=== PATIENT | male | born 1950 | race Caucasian/White ===

== ENCOUNTER 2020-09-12 17:46 | Inpatient (IN) | payer MEDICARE ==
[~2020-09-12] VITALS: Ht 172.7 cm; Wt 110.1 kg
[2020-09-12 17:51] VITALS: BP 141/49
[2020-09-12 18:13] LABS: ABSOLUTE BASOPHILS 0.1 thou/uL (0.0-0.2); ABSOLUTE LYMPHOCYTES 0.9 thou/uL (0.8-5.3); ABSOLUTE MONOCYTES 0.8 thou/uL (0.0-1.2); ABSOLUTE NEUTROPHILS 10.1 thou/uL (1.6-8.1); BASOPHILS 0.5 %; EOSINOPHILS 0.3 %; HEMATOCRIT 43.8 % (42.0-52.0); LYMPHOCYTES 7.6 %; MCH 30.5 pg (26.0-34.0); MCHC 34.1 g/dL (28.0-37.0); MCV 89.3 fL (80.0-100.0); MONOCYTES 6.9 %; MPV 11.3 fl. (7.2-11.1); NUCLEATED RBCS 0 /100WBC; PLATELET COUNT* 176 thou/uL (150-400); POLYS 84.7 %; RBC 4.91 mil/uL (4.50-6.00); RDW-CV 14.8 % (10.5-14.5); WBC 11.9 thou/uL (4.0-11.0)
[2020-09-12 18:24] LABS: APTT 24.2 Seconds (25.0-31.3); INR 1.1; PROTIME 11.7 Seconds (9.20-11.50)
[2020-09-12 18:42] LABS: ALBUMIN 2.9 g/dL (3.4-5.0); CALCIUM 8.8 mg/dL (8.5-10.1); CREATININE 0.9 mg/dL (0.6-1.3); MAGNESIUM 2.2 mg/dL (1.8-2.4); TOTAL BILIRUBIN 2.3 mg/dL (<0.1-1.0); TOTAL PROTEIN 6.8 g/dL (6.4-8.2)
[2020-09-12 18:45] LABS: POTASSIUM 2.9 mmol/L (3.5-5.1)
[2020-09-12 18:52] LABS: BE 8.1 mmol/L (-2 to +3); PCO2 44.8 mmHg (35.0-45.0); pH 7.481 (7.340-7.450)
[2020-09-12 18:59] LABS: PO2 247.1 mmHg (75.0-100.0)
[2020-09-12 21:48] LABS: URINE BILIRUBIN NEGATIVE (Negative); URINE BLOOD NEGATIVE (Negative); URINE CLARITY CLEAR; URINE COLOR YELLOW; URINE GLUCOSE-RANDOM NEGATIVE (Negative); URINE KETONES NEGATIVE (Negative); URINE LEUKOCYTES NEGATIVE (Negative); URINE NITRITE NEGATIVE (Negative); URINE PROTEIN NEGATIVE (Negative); URINE SPECIFIC GRAVITY <= 1.005 (1.005-1.030)
[2020-09-13] VITALS (181 sets, daily range): BP systolic 84–128; BP diastolic 42–77
[2020-09-13 05:23] LABS: HEMATOCRIT 42.4 % (42.0-52.0); HEMOGLOBIN 14.4 gm/dL (14.0-18.0); MCH 30.7 pg (26.0-34.0); MCHC 33.9 g/dL (28.0-37.0); MCV 90.4 fL (80.0-100.0); MPV 11.4 fl. (7.2-11.1); RBC 4.69 mil/uL (4.50-6.00); RDW-CV 14.5 % (10.5-14.5); WBC 7.3 thou/uL (4.0-11.0)
[2020-09-13 05:37] LABS: ALBUMIN 2.2 g/dL (3.4-5.0); CALCIUM 7.8 mg/dL (8.5-10.1); MAGNESIUM 1.8 mg/dL (1.8-2.4); PHOSPHORUS* 3.6 mg/dL (2.5-4.9); POTASSIUM 3.9 mmol/L (3.5-5.1); TOTAL PROTEIN 4.9 g/dL (6.4-8.2)
[2020-09-13 06:21] LABS: BE 4.3 mmol/L (-2 to +3); PCO2 48.7 mmHg (35.0-45.0); PO2 74.2 mmHg (75.0-100.0); pH 7.408 (7.340-7.450)
--- NOTE | 2020-09-13 06:23 | NUR ---
PATIENT ARRIVED ON UNIT AT 0425 WITH SURGERY. REPORT GIVEN AT BEDSIDE TO SENIOR MARKET RESEARCH ANALYST AND THIS RN. SENIOR MARKET RESEARCH ANALYST RECOVERED PATIENT UNTIL APPROX 0600. UPDATED REPRT GIVEN TO THIS RN. PATIENT INTUBATED AND SEDATED AT THIS TIME. INCISIONAL WOUND MIDLINE ABD WITH PATRICA UNDER SURGICAL DRESSING. WOUNDVAC IN PLACE AT SURGICAL SITE. SURGICAL COORDINATOR ASSESSMENT COMPLETED DOCUMENTED.
--- NOTE | 2020-09-13 07:37 | NUR ---
Nutrition: pt admit with strangulated hernia and bowel perforation. post-op ventral hernia repair and small bowel resection last pm. Pt now on vent in ICU. No wt hx. Albumin 2.2, BUN 21. Solumedrol, propfol and other meds reviewed. Assess at mild nutrition risk at this time, but recommend nutrition support if unable to start po soon.
--- NOTE | 2020-09-13 10:08 | EKG ---
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: ANIRUDH : 1950 Requested By: Cesar Aquino Order Number: [id number] MD: Rick Galloway Measurements Intervals [place] Rate: 119 P: 198 MD: 166 QRS: 33 QRSD: 157 T: -44 QT: 359 QTc: 506 Interpretive Statements Sinus or ectopic atrial tachycardia Multiform ventricular premature complexes Right bundle branch block No previous ECG available for comparison Electronically Signed On 09-13-2020 10:08:23 COFFEE MAKER by Rick Galloway [email or web address] <ELECTRONICALLY SIGNED> By: Rick Galloway MD, [facility] 09/13/20 1008 1744 1744 Rick Galloway MD, [facility] /EPI
--- NOTE | 2020-09-13 14:18 | NUR ---
ICU rounds: Pt had surgery around 4am. Wound vac in place. Per Med Assist, Pt does have insurance, facesheet to be updated. Satting in the 70s. Pineda. Low grade temp. Pt does not have any contact info on his medical chart.
--- NOTE | 2020-09-13 18:39 | NUR ---
Pt was showing signs of agitation with only propofol, md added fentanyl, and pt is resting comfortably. Pt sbp was in the high 80's and map was 59-60. Decreased propofol and fentanyl. Sbp is still soft but in the 90's, map is 66. No bm today, bowel sounds present. Decreased urine output this shift, fluid maintenance maintained.
[2020-09-14] VITALS (46 sets, daily range): BP systolic 92–125; BP diastolic 50–72
[2020-09-14 03:48] LABS: HEMATOCRIT 40.1 % (42.0-52.0); HEMOGLOBIN 13.2 gm/dL (14.0-18.0); MCHC 33.1 g/dL (28.0-37.0); MCV 90.8 fL (80.0-100.0); NUCLEATED RBCS 0 /100WBC; PLATELET COUNT* 134 thou/uL (150-400); RBC 4.41 mil/uL (4.50-6.00); WBC 12.1 thou/uL (4.0-11.0)
[2020-09-14 03:56] LABS: ALBUMIN 1.9 g/dL (3.4-5.0); CALCIUM 7.7 mg/dL (8.5-10.1); CREATININE 1.1 mg/dL (0.6-1.3); MAGNESIUM 2.2 mg/dL (1.8-2.4); PHOSPHORUS* 2.9 mg/dL (2.5-4.9)
[2020-09-14 05:35] LABS: BE 1.3 mmol/L (-2 to +3); PO2 63.7 mmHg (75.0-100.0)
[2020-09-14 05:43] LABS: PCO2 53.4 mmHg (35.0-45.0)
[2020-09-14 06:10] LABS: ABSOLUTE LYMPHOCYTES 0.1 thou/uL (0.8-5.3); ABSOLUTE MONOCYTES 0.4 thou/uL (0.0-1.2); ABSOLUTE NEUTROPHILS 11.6 thou/uL (1.6-8.1); PLATELET ESTIMATE DECREASED
[2020-09-14 06:11] LABS: ANISOCYTOSIS 1+; POIKILOCYTOSIS 1+
--- NOTE | 2020-09-14 14:41 | NUR ---
ICU rounds: Plan weaning trial, nurse waiting to speak to pulm. Following commands. CM obtained contact info for Pt's son, Marko [phone], CM left , awaiting call back.
[2020-09-14 15:37] LABS: BE 0.8 mmol/L (-2 to +3); pH 7.301 (7.340-7.450)
[2020-09-14 15:39] LABS: PCO2 59.2 mmHg (35.0-45.0)
[2020-09-14 15:40] LABS: PO2 59.4 mmHg (75.0-100.0)
[2020-09-15] VITALS (21 sets, daily range): BP systolic 109–149; BP diastolic 53–84
[2020-09-15 04:47] LABS: PO2 113.6 mmHg (75.0-100.0)
[2020-09-15 04:54] LABS: pH 7.262 (7.340-7.450)
[2020-09-15 04:55] LABS: PCO2 59.4 mmHg (35.0-45.0)
[2020-09-15 05:05] LABS: HEMATOCRIT 39.5 % (42.0-52.0); HEMOGLOBIN 12.8 gm/dL (14.0-18.0); MCH 29.9 pg (26.0-34.0); MCHC 32.5 g/dL (28.0-37.0); MCV 92.2 fL (80.0-100.0); MPV 11.2 fl. (7.2-11.1); RBC 4.29 mil/uL (4.50-6.00); RDW-CV 14.9 % (10.5-14.5); WBC 11.2 thou/uL (4.0-11.0)
[2020-09-15 05:38] LABS: CALCIUM 8.3 mg/dL (8.5-10.1); CREATININE 0.8 mg/dL (0.6-1.3); MAGNESIUM 2.4 mg/dL (1.8-2.4); POTASSIUM 4.2 mmol/L (3.5-5.1); TOTAL BILIRUBIN 0.9 mg/dL (<0.1-1.0); TOTAL PROTEIN 5.4 g/dL (6.4-8.2)
--- NOTE | 2020-09-15 10:11 | NUR ---
CARE TAKEN OVER AFTER PT RETURNED FROM CT. ABDOMINAL BINDER AND TOWEL REMOVED. TOWEL SATURATED. SEROSANG DRAINAGE FROM BETWEEN 3RD & 4TH PATRICA, 8TH & 9TH PATRICA, AND 11TH & 12TH PATRICA. ABDOMEN W/ DISTENTION AND TIGHT UPON ASSESSMENT-NEW FROM 09/14. UNABLE TO AUSCULTATE BS THIS AM. DISCOMFORT W/ PALPATION. DENIES PASSING FLATUS. NO BM. NG TO LIS. FULL BATH GIVEN. MIDLINE INCSION CLEANSED W/ SOAP AND WATER. ABD PADS AND PAPER CHUX PLACED UNDER ABD BINDER. REINFORCED EDUCATION R/T SPLINTING, DEEP BREATHING AND COUGHING, AND SUCTION. PT VERBALIZED UNDERSTANDING BUT WILL NEED ENCOURAGEMENT. RYTHYM ON MONITOR DIFFICULT TO INTERPRET. SR/ST W/ FREQUENT ECTOPY VS AFIB W/ FREQUENT ECTOPY. EKG COMPLETED AND GIVEN TO DR JONES. CARDS CONSULTED. PT DENIES CP OR OTHER DISCOMFORT. NO ST ELEVATION NOTED. VSS. Katia MCCALL RN
--- NOTE | 2020-09-15 11:46 | NUR ---
PT C/O BLADDER PRESSURE APPROXIMATELY 30MIN AFTER ADMINISTRATION OF FUROSEMIDE. NO URINE OUTPUT NOTED IN HERNANDEZ TUBING. HERNANDEZ REMOVED AND 16FR HERNANDEZ REPLACED. IMMEDIATE BLOOD TINGED URINE W/ SEDIMENT RETURNED. NOW CLEAR W/O SEDIMENT. APPROX 350CC IN UROMETER AFTER PLACEMENT. PT DENIES BLADDER PRESSURE/SPASMS AT THIS TIME. PT ALSO REPOSITIONED AND ORAL CARE COMPLETED. RESTING IN BED W/ EYES CLOSED AT THIS TIME. NORBERTO PEREA W/ CARDIOLOGY NOTIFIED OF CONSULT. Katia MCCALL RN
[2020-09-15 11:48] LABS: URINE BILIRUBIN NEGATIVE (Negative); URINE BLOOD 2+ (Negative); URINE CLARITY CLEAR; URINE COLOR YELLOW; URINE GLUCOSE-RANDOM NEGATIVE (Negative); URINE KETONES NEGATIVE (Negative); URINE LEUKOCYTES-REFLEX NEGATIVE (Negative); URINE NITRITE-REFLEX NEGATIVE (Negative); URINE PROTEIN NEGATIVE (Negative); URINE UROBILINOGEN 0.2 E.U./dl (0.2-1.0)
[2020-09-15 11:59] LABS: BACTERIA-REFLEX 1-9 Few /HPF (None Seen); CASTS None Seen /LPF (None Seen); CRYSTALS None Seen /LPF (None Seen); MUCUS None Seen strn/LPF (None Seen); SQUAMOUS 0-3 Few /LPF (0-3); URINE RBC >20 Many /HPF (0-2); URINE WBC-REFLEX 0-5 Rare /HPF (0-5)
--- NOTE | 2020-09-15 13:49 | NUR ---
ICU rounds: Extubated yesterday. On 9L NC. Bipap at NOC. Doing ok. Lasix gtt. CT abd today, Pt having drainage. ESTEE Pineda. Pain management. May need ARU vs SNF.
--- NOTE | 2020-09-15 14:40 | OP ---
[address] [address] OPERATIVE REPORT Name: АЛЕКСАНДР MAKI Room: [address] ADM IN M.R.#: [id number] Admission: 09/12/20 Attend Phys: Tay Mujica Discharge: Date of : 46 Report #: [id number] THIS REPORT FOR: cc: BORIS - No family physician/PCP FAM - No family physician/PCP ~ Mingo Vincent DO DICTATED BY: Shea Mario DO DATE OF SERVICE: 09/13/2020 PREOPERATIVE DIAGNOSIS: Incarcerated ventral hernia. POSTOPERATIVE DIAGNOSIS: Strangulated ventral hernia with perforated bowel. PRIMARY SURGEON: Mingo Vincent DO STENOTYPIST: Shea Mario DO, PGY3. PROCEDURE PERFORMED: Exploratory laparotomy, small bowel resection, small bowel anastomosis resection with reanastomosis, ventral hernia repair, and partial omentectomy. ANESTHESIA: General. ESTIMATED BLOOD LOSS: 40. SPECIMENS: Omentum, hernia sac, and small bowel. COMPLICATIONS: None. INDICATIONS FOR PROCEDURE: The patient is a pleasant 69-year-old gentleman that presented to the Emergency Department via EMS with complaints of worsening shortness of breath. He had a workup in the Emergency Department, which included a CT scan of his abdomen as he also complained of some periumbilical abdominal pain. CT scan of the abdomen and pelvis showed a ventral hernia containing a loop of small bowel with dilated loops of small bowel proximal to this area and decompressed loops distal to this indicative of an obstructive process. On exam, his abdomen was obese and quite tender to palpation at the site of the hernia. He also has some developing erythema and warmth overlying the hernia. Despite multiple tries, the hernia was unable to be reduced. It was recommended that he go to the operating room for exploration and repair of his hernia. The procedure, risks, benefits, possible complications to include bleeding, infection, injury to surrounding structures, need for additional surgery, the need for use of a mesh, mesh complications, need for bowel resection, need for ostomy, risks of anesthesia, [place] [address] OPERATIVE REPORT Name: АЛЕКСАНДР MAKI Room: [address] IN [facility]#: [id number] Admission: 09/12/20 Attend Phys: Tay Mujica Discharge: Date of : 46 Report #: [id number] discussed with the patient in great detail. He voiced complete understanding and wished to proceed with surgery. DESCRIPTION OF PROCEDURE: Informed consent was obtained. The patient was taken to the operating room and placed supine on the operating room table. General endotracheal anesthesia was induced without difficulty. SCDs were placed on bilateral lower extremities. Preoperative antibiotics were given. A Pineda catheter was placed. The abdomen was prepped and draped in the standard sterile fashion. A timeout was performed to ensure correct patient and procedure. An incision was planned out using a marking pen overlying the palpable hernia in the area of erythema. A #10 blade scalpel was used to make a celiotomy incision over the hernia. The incision was carried down through the subcutaneous tissues using electrocautery until we reached the hernia sac. The hernia sac was completely dissected free from surrounding tissues using mostly blunt dissection and a small amount of electrocautery until we reached the level of fascia. The hernia sac was grasped between 2 hemostats and entered using Metzenbaum scissors. Once the hernia sac was opened, there was a large amount of serous fluid that was expelled. A finger was inserted into the hernia sac and the hernia sac was completely opened up taking care not to injure the contents of the hernia sac. There was a large amount of devitalized omentum within the hernia sac as well as some small bowel. The small bowel was delivered through the hernia defect and we noted a quite large small bowel perforation that had occurred along the fascial edge secondry to pressure necrosis. There was some gross spillage. This was quickly suctioned away and the perforation was clamped with an Allis clamp so that we could run the remainder of the small bowel. The fascia was opened up superiorly and inferiorly for the full length of the incision. Once this was done, an exploration was performed. The small bowel was completely eviscerated and run from the ligament of Treitz to the terminal ileum. There did appear to be some chronic small bowel adhesions within the abdomen. These did not appear to be causing any sort of obstructive process. There was a clear transition point at the area of the small bowel perforation. This was in the distal jejunum and proximal ileum. Once the small bowel was run, we prepared to perform a small bowel resection. A small rent was made in the mesentery just proximal to the perforation. Once this was done, a 75 mm blue load on the DAYSI stapler was used to transect the bowel. Another small rent was made in the mesentery distal to our small bowel perforation. Another 75 mm blue load on the DAYSI stapler was used to transect the small bowel in this area. The LigaSure device was used to ligate the mesentery of the small bowel that was being removed. This was then passed off for permanent specimen. The antimesenteric corners of the small bowel were grasped with Allis clamps and brought together to perform an anastomosis. Heavy curved Mayos were used to cut off to make a small enterotomy on the antimesenteric corner of the small bowel. This was grasped with an Allis clamp. Another 75 mm blue load on the [address] [address] OPERATIVE REPORT Name: АЛЕКСАНДР MAKI Caitlin Room: [address] IN .R.#: [id number] Admission: 09/12/20 Attend Phys: Tay Mujica Discharge: Date of : 46 Report #: [id number] stapler was used to form our common enterotomy. Once this was done, the common enterotomy was inspected. It appeared to be hemostatic. The opening in the small bowel was then grasped and closed with 4 Allis clamps. This enterotomy was closed using a TA-60 stapler. Once this was done, the anastomosis was complete. A 2-0 silk suture was used to place a crotch stitch at the crotch of our anastomosis. The staple line was oversewn using 2-0 silk suture in a Lembert fashion. The common enterotomy was palpated. It felt widely open. The small bowel was then returned to the abdomen. The abdomen was irrigated with approximately 4 liters of sterile saline. At this point, we elected to run the small bowel one additional time prior to preparing to close. The small bowel was run from the ligament of Treitz to the terminal ileum. Upon inspection of our anastomosis, it appeared that there was a leak at the previously placed crotch stitch so the anastomosis was resected and a new anastomosis was performed in the same fashion as prior, although this time we did not place another crotch stitch. A small rent was made in the mesentery proximal to our anastomosis. The small bowel was transected using a 75 mm blue load on the DAYSI stapler. A small rent was made in the mesentery distal to our anastomosis and the small bowel was transected using 75 mm blue load on the DAYSI stapler. The mesentery of the small bowel that was being resected was ligated using the LigaSure device. Again antimesenteric corners of the small bowel were grasped with Allis clamps. A small enterotomy was made on both using a heavy curved Fagan scissors. This was grasped with an Allis clamp. A 75 mm blue load on the DAYSI stapler was used to form a common channel along the antimesenteric border of both segments of small bowel. This was inspected and appeared to be hemostatic. The remaining enterotomy in the small bowel was grasped and closed using Allis clamps. This was stapled closed using a TA-60 stapler. Once this was done, the anastomosis was complete. We did not place a crotch stitch at this time. The staple line was oversewn using 2-0 silk suture in a Lembert fashion. The mesenteric rent was closed using 2-0 Vicryl suture in a running fashion. The anastomosis was reinspected. It appeared to be hemostatic. Small bowel was returned to the abdomen. Abdomen was again irrigated using approximately 2 liters of warm sterile saline. The anesthesiologist placed an NG tube with feculent material return. This placement was confirmed by palpating the stomach during the surgery. During our exploration, we did palpate the liver. It did feel quite nodular consistent with a diagnosis of cirrhosis, which was mentioned on his preoperative CAT scan. There did not appear to be any other abnormalities on our exploration. We then prepared to close the abdomen. The fascia was closed using 2 number 1 PDS looped sutures. One was run from the bottom of the incision and one was run from the top. They met in the middle and then these were tied down. The subcutaneous tissues were reapproximated using 3-0 Vicryl suture in a simple interrupted and inverted fashion. The skin was reapproximated using kristofer. A 20 cm Prevena wound VAC was placed over our incision. Abdomen was cleansed and dried prior to [facility] [address] [place] [address] OPERATIVE REPORT Name: SHANTHIАЛЕКСАНДР Caitlin Room: 006-[facility] IN [facility].#: [id number] Admission: 09/12/20 Attend Phys: Tay Mujica Discharge: Date of : 46 Report #: [id number] placing the vacuum dressing. Once the VAC dressing was in place, our drapes were torn down. The patient tolerated the procedure very well. He remained intubated and was transferred to the ICU for ongoing care. <ELECTRONICALLY SIGNED> By: Mingo Vincent DO 09/15/20 1440 0450 0517Minog Vincent DO /nt
--- NOTE | 2020-09-15 15:31 | NUR ---
PT ASSISTED TO RECLINER CHAIR X2 NURSES. PT ABLE TO SIT ON EDGE OF BED AND STAND W/O DIFFICULTY. DENIED DIZZINESS/LIGHTHEADEDNESS/PAIN/DISCOMFORT. HR DID INCREASE TO 130'S BUT DID NOT SUSTAIN AND IS CURRENTLY IN 90'S-100'S. CONTINUES TO HAVE FREQUENT PVCS. O2 SAT REMAINED IN 90'S ON 14L HI [place]. DENIED SOA/DIFFICULTY BREATHING. CURRENTLY SITTING UP IN RECLINER. DENIES PAIN. ABD BINDER ADJUSTED. APPEARS TO HAVE DECREASED DRAINAGE. SWABS AT BEDSIDE. PT INDEPENDENT W/ ORAL CARE. HERNANDEZ TO D/D. DRAINING CLEAR/YELLOW ADEQUEATE URINE. Katia MCCALL RN
--- NOTE | 2020-09-15 16:41 | 2DMMODE ---
[place] [address] 2 D/M-MODE ECHOCARDIOGRAM Name: АЛЕКСАНДР MAKI Room: 006- ADM IN .R.#: [id number] Admission: 09/12/20 Attend Phys: Rashaad Boudreaux Discharge: Date of : 46 Date of Service: 09/15/20 1641 Report #: [id number] THIS REPORT FOR: cc: FAM - No family physician/PCP FAM - No family physician/PCP Trevor Hoyos MD [facility] ~ APPROVED REPORT Study performed: 09/15/2020 14:23:32 EXAM: Comprehensive 2D, Doppler, and color-flow Echocardiogram Patient Location: In-Patient Room #: 006 Status: routine BSA: 2.39 HR: 117 bpm BP: 116/59 mmHg Rhythm: NSR Other Information Study Quality: Good Indications Abnormal ECG Dyspnea 2D Dimensions IVSd: 12.87 (7-11mm) LVOT Diam: 24.51 (18-24mm) LVDd: 48.18 mm PWd: 9.68 (7-11mm) Ascending Ao: 40.07 (22-36mm) LVDs: 28.55 (25-40mm) Aortic Root: 39.63 mm Volumes Left Atrial Volume (Systole) LA ESV Index: 21.60 mL/m2 Aortic Valve AoV Peak Adrien.: 1.36 m/s AO Peak Gr.: 7.36 mmHg LVOT Max P.46 mmHg AO Mean Gr.: 4.32 mmHg LVOT Mean P.02 mmHg LVOT Max V: 1.27 m/s AO V2 VTI: 26.13 cm LVOT Mean V: 0.79 m/s [place] (VTI): 4.10 cm2 LVOT V1 VTI: 22.69 [place] [address] 2 D/M-MODE ECHOCARDIOGRAM Name: АЛЕКСАНДР MAKI Room: [address] IN ..#: [id number] Admission: 09/12/20 Attend Phys: Rashaad Boudreaux Discharge: Date of : 46 Date of Service: 09/15/20 1641 Report #: [id number] Mitral Valve E/A Ratio: 1.15 MV E Max Adrien.: 0.72 m/s Pulmonary Valve PV Peak Adrien.: 0.95 m/s PV Peak Gr.: 3.64 mmHg Left Ventricle The left ventricle is normal size. There is normal LV segmental wall motion. There is normal left ventricular wall thickness. Left ventricular systolic function is normal. LVEF is 60-65%. Transmitral Doppler flow pattern suggests impaired LV relaxation. Right Ventricle The right ventricle is normal size. The right ventricular systolic function is normal. Atria The left atrium size is normal. The right atrium size is normal. Aortic Valve The aortic valve is normal in structure. No aortic regurgitation is present. There is no aortic valvular stenosis. Mitral Valve The mitral valve is normal in structure. Trace mitral regurgitation. No evidence of mitral valve stenosis. Tricuspid Valve The tricuspid valve is normal in structure. There is no tricuspid valve regurgitation noted. Pulmonic Valve The pulmonary valve is normal in structure. There is no pulmonic valvular regurgitation. Great Vessels Aortic root is mildly dilated. (4.01cm) IVC is not visualized. Pericardium There is no pericardial effusion. <Conclusion> [place] [address] 2 D/M-MODE ECHOCARDIOGRAM Name: SHANTHIАЛЕКСАНДР J Room: [address] IN .R.#: [id number] Admission: 09/12/20 Attend Phys: Rashaad Boudreaux Discharge: Date of : 46 Date of Service: 09/15/201640 Report #: [id number] The left ventricle is normal size. There is normal left ventricular wall thickness. Left ventricular systolic function is normal. LVEF is 60-65%. Transmitral Doppler flow pattern suggests impaired LV relaxation. Trace mitral regurgitation. Aortic root is mildly dilated. (4.01cm) <ELECTRONICALLY SIGNED> By: Trevor Hoyos MD, [facility] 09/15/201640 40 Trevor Hoyos MD, FACC /INF
[2020-09-16] VITALS (23 sets, daily range): BP systolic 95–138; BP diastolic 33–77
[2020-09-16 04:39] LABS: HEMATOCRIT 39.3 % (42.0-52.0); HEMOGLOBIN 13.1 gm/dL (14.0-18.0); MCH 30.5 pg (26.0-34.0); MCHC 33.3 g/dL (28.0-37.0); MCV 91.6 fL (80.0-100.0); MPV 10.4 fl. (7.2-11.1); RBC 4.29 mil/uL (4.50-6.00); RDW-CV 14.9 % (10.5-14.5); WBC 7.4 thou/uL (4.0-11.0)
[2020-09-16 05:07] LABS: ALBUMIN 2.1 g/dL (3.4-5.0); ALKALINE PHOSPHATASE 73 U/L (46-116); ANION GAP < 0 mmol/L (7-16); BUN 34 mg/dL (7-18); CALCIUM 8.5 mg/dL (8.5-10.1); CHLORIDE 105 mmol/L (98-107); CO2 37 mmol/L (21-32); CREATININE 0.9 mg/dL (0.6-1.3); GLUCOSE 219 mg/dL (70-99); MAGNESIUM 2.2 mg/dL (1.8-2.4); POTASSIUM 4.4 mmol/L (3.5-5.1); SGOT 20 U/L (15-37); SGPT 21 U/L (30-65); SODIUM 141 mmol/L (136-145); TOTAL BILIRUBIN 0.7 mg/dL (<0.1-1.0); TOTAL PROTEIN 5.6 g/dL (6.4-8.2)
--- NOTE | 2020-09-16 06:26 | NUR ---
ASSUMED PATIENT CARE AT 1900. ASSESSMENTS COMPLETED CHARTED. CARDIAC MONITORING IN PLACE. MIDLINE INCISION DRESSING CHANGED TWICE. PATIENT DENIES PAIN. ABDOMINAL BINDER WITH INCISION DRESSING INTACT. FALL PRECAUTIONS IN PLACE FOR PATIENT SAFETY. BED LOCKED AND IN LOWEST POSITION. BED ALARM ON. HOURLY ROUNDING IN PLACE FOR PATIENT SAFETY. CLWR.
--- NOTE | 2020-09-16 10:26 | NUR ---
0798 ASSUMED CARE OF PATIENT. PLEASE SEE DOCUMENTED ASSESSMENT. PT DENIES PAIN. PT HAD BURST OF V TACH (4-5 BEATS) AND PRESENTS WITH FREQUENT VENTRICULAR ECTOPY.
--- NOTE | 2020-09-16 17:20 | EKG ---
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 And Service Agent: JINNY : 1950 Requested By: Gregoria Guerrero Order Number: [id number] Tomasz MD: Trevor Hoyos Measurements Intervals [place] Rate: 101 P: 87 MD: 220 QRS: 32 QRSD: 115 T: 3 QT: 356 QTc: 462 Interpretive Statements Sinus tachycardia Ventricular trigeminy Prolonged MD interval Incomplete right bundle branch block Low voltage, precordial leads Baseline wander in lead(s) V1 Compared to ECG 09/12/2020 17:44:54 First degree AV block now present Incomplete right bundle-branch block now present Low QRS voltage now present Right bundle-branch block no longer present Electronically Signed On 09-16-2020 17:20:39 NETWORK STRATEGIST by Trevor Hoyos [email or web address] <ELECTRONICALLY SIGNED> By: Trevor Hoyos MD, [facility] 09/16/20 1720 0859 Trevor Hoyos MD, [facility] /EPI
--- NOTE | 2020-09-16 17:21 | EKG ---
[place] [address] ELECTROCARDIOGRAM REPORT Name: АЛЕКСАНДР MAKI Room: [address] ADM IN M.R.#: [id number] Admission: 09/12/20 Attend Phys: Rashaad Boudreaux Discharge: Date of : 46 Date of Service: 09/15/20901 Report #: [id number] THIS REPORT FOR: //name// [facility] Test Date: 2020-09-15 Test Time: 09:02:07 Pat Name: АЛЕКСАНДР MAKI Department: Room: [address] Gender: M Miniature Train Driver: JINNY : 1950 Requested By: Gregoria Guerrero Order Number: [id number] Tomasz MD: Trevro Hoyos Measurements Intervals [place] Rate: 108 P: NM: QRS: 33 QRSD: 149 T: 3 QT: 344 QTc: 461 Interpretive Statements Sinus rhythm Premature ventricular complexes Low voltage right bundle branch block Baseline wander in lead(s) V1 Compared to ECG 09/15/2020 08:59:55 Right bundle-branch block now present Sinus tachycardia no longer present First degree AV block no longer present Incomplete right bundle-branch block no longer present Electronically Signed On 09-16-2020 17:21:34 REGULATORY COMPLIANCE DIRECTOR by Trevor Hoyos [email or web address] <ELECTRONICALLY SIGNED> By: Trevor Hoyos MD, [facility] 09/16/20 1721 1 1 Trevor Hoyos MD, [facility] /EPI
--- NOTE | 2020-09-16 17:44 | NUR ---
PATIENT IS PROGRESSING TOWARDS GOALS. TOLERATING NG CLAMPED. PASSING FLATUS. UP IN CHAIR SINCE 1000 AND HAS WORKED WITH PHYSICAL THERAPY. INCENTIVE SPIROMETER ENCOURAGED. STARTED ON DILTIAZEM THIS EVENING FOR FREQUENT ECTOPY. DENIES PAIN. ABDOMINAL DRESSING CHANGED THREE TIMES. CALLED SON PER PT REQUEST AND LEFT MESSAGE. ALLOWED LIQUIDS BUT JUDICIOUSLY.
[2020-09-17] VITALS (18 sets, daily range): BP systolic 92–134; BP diastolic 44–72
[2020-09-17 03:50] LABS: HEMATOCRIT 37.6 % (42.0-52.0); HEMOGLOBIN 12.7 gm/dL (14.0-18.0); MCH 30.4 pg (26.0-34.0); MCHC 33.7 g/dL (28.0-37.0); MCV 90.2 fL (80.0-100.0); MPV 10.2 fl. (7.2-11.1); RBC 4.17 mil/uL (4.50-6.00); RDW-CV 14.6 % (10.5-14.5); WBC 6.4 thou/uL (4.0-11.0)
[2020-09-17 04:09] LABS: ALKALINE PHOSPHATASE 71 U/L (46-116); ANION GAP < 0 mmol/L (7-16); CALCIUM 8.4 mg/dL (8.5-10.1); CHLORIDE 102 mmol/L (98-107); CO2 36 mmol/L (21-32); CREATININE 0.9 mg/dL (0.6-1.3); GLUCOSE 227 mg/dL (70-99); POTASSIUM 4.2 mmol/L (3.5-5.1); SGOT 22 U/L (15-37); SGPT 27 U/L (30-65); SODIUM 137 mmol/L (136-145); TOTAL BILIRUBIN 0.8 mg/dL (<0.1-1.0); TOTAL PROTEIN 5.2 g/dL (6.4-8.2)
[2020-09-17 04:20] LABS: BUN 33 mg/dL (7-18)
[2020-09-17 05:24] LABS: BE 8.4 mmol/L (-2 to +3); pH 7.446 (7.340-7.450)
[2020-09-17 05:32] LABS: PCO2 50.3 mmHg (35.0-45.0)
[2020-09-18] VITALS (12 sets, daily range): BP systolic 90–146; BP diastolic 46–102
[2020-09-18 04:08] LABS: HEMATOCRIT 39.5 % (42.0-52.0); MCH 29.9 pg (26.0-34.0); MCV 90.9 fL (80.0-100.0); MPV 9.9 fl. (7.2-11.1); RBC 4.35 mil/uL (4.50-6.00); RDW-CV 14.8 % (10.5-14.5); WBC 4.9 thou/uL (4.0-11.0)
[2020-09-18 04:11] LABS: ALBUMIN 2.1 g/dL (3.4-5.0); CALCIUM 8.5 mg/dL (8.5-10.1); CREATININE 0.8 mg/dL (0.6-1.3); MAGNESIUM 1.9 mg/dL (1.8-2.4); TOTAL BILIRUBIN 1.2 mg/dL (<0.1-1.0); TOTAL PROTEIN 5.4 g/dL (6.4-8.2)
--- NOTE | 2020-09-18 18:30 | NUR ---
PT CURRENTLY SITTING UP IN CHAIR EATING DINNER. DENIES PAIN/DISCOMFORT. CONT TO HAVE SOA W/ ACTIVITY. RT ATTEMPTING TO TITRATE 02 TOLERATED. IS ENCOURAGED T/O DAY Q2H AND PT DOING INDPENDENTLY INBETWEEN. REGULAR DIET ORDERED-PT TOLERATING WELL. DENIES NAUSEA. ABLE TO HAVE BM X2 ON COMMODE W/O DIFFICULTY. + BS. OSTOMY BAG PLACED BY DR PIERCE AT PLACE OF INCREASED DRAINING. POSSIBILITY OF WOUND VAC PLACEMENT VERBALIZED BY DR RODRIGUEZ BUT NO CURRENT ORDERS. ABLE TO STAND AT CHAIR AND MARCH IN PLACE. VSS. DENIES FURTHER NEEDS. Katia MCCALL RN
[2020-09-19] VITALS (22 sets, daily range): BP systolic 97–129; BP diastolic 54–67
--- NOTE | 2020-09-19 01:50 | NUR ---
PT REMAINS ON 11LPM HFNC. SATS =94%. PT DOES NOT SLEEP AT NIGHT, REMAINS IN CHAIR WITH TV ON, ALERT. BIPAP NOT USED.
[2020-09-19 03:29] LABS: HEMATOCRIT 40.3 % (42.0-52.0); HEMOGLOBIN 13.4 gm/dL (14.0-18.0); MCH 30.3 pg (26.0-34.0); MCHC 33.4 g/dL (28.0-37.0); MCV 90.7 fL (80.0-100.0); MPV 10.2 fl. (7.2-11.1); NUCLEATED RBCS 0 /100WBC; PLATELET COUNT* 118 thou/uL (150-400); RBC 4.44 mil/uL (4.50-6.00); RDW-CV 14.3 % (10.5-14.5); WBC 8.8 thou/uL (4.0-11.0)
[2020-09-19 03:44] LABS: CREATININE 0.9 mg/dL (0.6-1.3); PHOSPHORUS* 2.8 mg/dL (2.5-4.9); POTASSIUM 3.8 mmol/L (3.5-5.1)
[2020-09-19 06:57] LABS: ABSOLUTE LYMPHOCYTES 0.6 thou/uL (0.8-5.3); ABSOLUTE MONOCYTES 0.2 thou/uL (0.0-1.2); PLATELET ESTIMATE ADEQUATE
--- NOTE | 2020-09-19 07:07 | NUR ---
PT REQUESTED TO SPEAK TO HEAD NURSE IN CHARGE. PT WOULD NOT DISCLOSE REASON. NURSING HEELER MACHINE NOTIFIED.
--- NOTE | 2020-09-19 07:36 | NUR ---
JOB DEVELOPER [employer] ERICA REPORTED TO THIS PUBLIC SCHOOL TEACHER THAT PT WAS HAVING PAIN AT INCISION SITE. PRN MED GIVEN
--- NOTE | 2020-09-19 14:11 | NUR ---
ICU rounds: Pt in surgery, wound dehiscenced. Pt maybe placed back on vent post surgery, RT prepared to assist if needed.
--- NOTE | 2020-09-19 15:39 | NUR ---
5158 PATIENT RETURNED FROM SURGERY WITH OR STAFF AT BEDSIDE. PATIENT WAS PLACED BACK ON THE ICU MONITOR. PATIENT STABLE AND DENIES PAIN. PATIENT a&O X 4 PLEASANT AND COOPERATIVE. MIDLINE INCISION WITH PATENT WOUND VAC. NO FURTHER CONCERNS AT THIS TIME. WILL CONITNUE TO MONITOR AND CARE PER PLAN OF CARE.
[2020-09-20] VITALS (44 sets, daily range): BP systolic 82–127; BP diastolic 38–70
[2020-09-20 07:12] LABS: ABSOLUTE LYMPHOCYTES 0.5 thou/uL (0.8-5.3); ABSOLUTE MONOCYTES 0.7 thou/uL (0.0-1.2); ABSOLUTE NEUTROPHILS 12.3 thou/uL (1.6-8.1); BASOPHILS 0.1 %; HEMOGLOBIN 13.6 gm/dL (14.0-18.0); LYMPHOCYTES 3.6 %; MCH 30.1 pg (26.0-34.0); MCHC 33.2 g/dL (28.0-37.0); MCV 90.7 fL (80.0-100.0); MONOCYTES 5.1 %; MPV 9.6 fl. (7.2-11.1); NUCLEATED RBCS 0 /100WBC; PLATELET COUNT* 104 thou/uL (150-400); POLYS 91.2 %; RBC 4.52 mil/uL (4.50-6.00); RDW-CV 14.7 % (10.5-14.5); WBC 13.5 thou/uL (4.0-11.0)
[2020-09-20 07:20] LABS: CALCIUM 8.2 mg/dL (8.5-10.1); CREATININE 0.8 mg/dL (0.6-1.3); POTASSIUM 4.3 mmol/L (3.5-5.1)
--- NOTE | 2020-09-20 09:11 | OP ---
[address] [address] OPERATIVE REPORT Name: АЛЕКСАНДР MAKI Room: [address] ADM IN M.R.#: [id number] Admission: 09/12/20 Attend Phys: Tay Mujica Discharge: Date of : 46 Report #: [id number] THIS REPORT FOR: cc: FAM - No family physician/PCP FAM - No family physician/PCP ~ Xiao Pfeiffer DO DICTATED BY: Zackery Wong DO DATE OF SERVICE: 09/19/2020 PREOPERATIVE DIAGNOSIS: Fascial dehiscence. POSTOPERATIVE DIAGNOSIS: Fascial dehiscence. FINDINGS: Previous laparotomy incision with bulging kristofer with small bowel visible. SURGEON: Xiao Pfeiffer DO. CO-SURGEON: Zackery Wong DO, PGY5. BRIDGE WORKER APPRENTICE: Mikey Adam DO, PGY1. OPERATION PERFORMED: Reopening of recent laparotomy, repair of fascial dehiscence with component separation and preperitoneal mesh. ANESTHESIA: GETA. ESTIMATED BLOOD LOSS: 20 mL. SPECIMEN: None. COMPLICATIONS: None. CONDITION: Guarded. DISPOSITION: ICU. INDICATIONS: The patient is a 69-year-old male status post exploratory laparotomy for ventral hernia with perforated small bowel. He was taken to the operating room approximately a week ago for hernia repair, small bowel resection. His abdomen was closed with running looped PDS. Several days into his postop course in the ICU, he was noted after a spell of coughing to have an increase in fluid coming through his midline wound. He underwent CT scan at that time and was found to have an intact fascia. He had ongoing midline [facility] [address] [place] [address] OPERATIVE REPORT Name: АЛЕКСАНДР MAKI Room: [address] ADM IN .R.#: [id number] Admission: 09/12/20 Attend Phys: Tay Mujica Discharge: Date of : 46 Report #: [id number] drainage that was high in volume. Today when attempting to remove an ostomy appliance that was over a portion of his incision and catching some of the fluid, it was noted that between the kristofer at several points there was small bowel visible. His incision and bowel were quickly covered and he was informed of his status, informed of the risks and benefits of re-laparotomy and repair of his dehiscence with possible bowel resection and possible mesh. He consented to proceed with surgery. DESCRIPTION OF PROCEDURE: After informed consent was obtained, the patient was brought to the operating room and placed in supine position. SCDs were on and running. Preoperative Ancef was given. General anesthesia was administered with an ET tube. The patient was carefully prepped and draped in the usual sterile fashion. A surgical pause was held to confirm proper patient and procedure. His remaining kristofer were removed with a Fiorella. This immediately resulted in complete evisceration of the small bowel, which was folded under the skin. The remains of the fascial closure were opened. As the fascia had torn apart, the suture material had torn through the fascia. All previous PDS material was found and excised. There were several Vicryl stitches in the subcutaneous tissue, which were cut and then several Vicryl stitches in the peritoneum, which were also cut. The small bowel was delivered and inspected. It appeared intact. The colon was also delivered and appeared intact and healthy. The omentum was balled up in the right upper quadrant. This was unfolded and draped over the bowel. The abdomen was thoroughly irrigated and suctioned. Two 19-Georgian SHERLYN drains were placed in the right and left lower quadrant. Both drains were intra-abdominal to decrease the ascites load. On exploration of the abdomen, the patient's liver was palpated and extremely nodular and hard. The NG tube was palpated within the stomach in adequate position and decompressed. Attention was then returned towards the abdominal wall for reconstruction. The peritoneum was taken down from the fascia on both sides using combination of cautery and blunt dissection. The peritoneum was then closed using interrupted simple sutures with 2-0 Vicryl. There were several rents in the peritoneum, which were closed as well using 2-0 Vicryl. Two separate pieces of 7 x [address] mesh were then selected and sutured together lengthwise using three 2-0 PDS sutures and #1 nylon was then used to place 3 retention sutures that went transcutaneous through the subcutaneous tissue and through fascia and across to the other side, but did not go intraperitoneal. These were placed at the superior, middle and inferior aspect of the incision. They were tagged and placed aside. The mesh was then tacked down to the fascia at the lateral edges of the mesh using 2-0 PDS in a U-stitch fashion with suprafascial knots. This was performed at the superior, middle and inferior aspect on the lateral edges of the mesh. The fascia was then closed with interrupted 2-0 PDS sutures including some of the mesh in the closure. Once the fascia was completely closed, it was palpated and deemed adequate. The subcutaneous space was thoroughly irrigated and suctioned. The subcutaneous fat was closed in layered fashion using 3-0 Vicryl. [place] [address] OPERATIVE REPORT Name: АЛЕКСАНДР MAKI Room: [address] IN [facility]#: [id number] Admission: 09/12/20 Attend Phys: Tay Mujica Discharge: Date of : 46 Report #: [id number] closing kristofer. The retention sutures were then tied to themselves through a red rubber catheter over the kristofer. The drains were secured using a 3-0 nylon. The abdomen was then thoroughly irrigated and cleaned and a 20 cm Prevena was then placed over the skin closure and over the retention sutures. Additional drapes were placed around the drains to secure them. Mastisol was used to assist with Prevena securement. The counts were correct. The patient was then emerged from anesthesia and transferred back to the ICU in stable condition. <ELECTRONICALLY SIGNED> By: Xiao Pfeiffer DO 09/20/20 0911 1447 1527Chdamián Pfeiffer DO /haroon
--- NOTE | 2020-09-20 09:51 | PATH ---
[address] [address] PATHOLOGY RPT PROCEDURE Name: SHANTHIАЛЕКСАНДР Caitlin Room: [address] ADM IN M.R.#: [id number] Admission: 09/12/20 Date of : 46 Discharge: Report #: [id number] Path Case #: [id number] [facility] Accession Number: [id number] . 01 Material submitted: . PART A: small bowel - OMENTUM AND SMALL INTESTINE PART B: small bowel - SMALL BOWEL ANASTAMOSIS . 01 Clinical history: . INCARCERATED VENTRAL HERNIA, PERFORATION OF SMALL BOWEL ASSOCIATED WITH HERNIA, RESPIRATORY FAILURE, COPD, EXACERBATION, CELLULITIS . 02 Diagnosis: A. Omentum and small bowel: - Segment of benign small intestine with discrete transmural perforation in association with chronic and acute ischemic features including mural and serosal fibrosis, reactive endothelial proliferation and acute inflammation. - One benign mesenteric lymph node. - Benign omentum with acute serositis and focal serosal fibrosis. . B. Small bowel anastomosis: - Two benign anastomosed segments of small intestine with mild mucosal active inflammation and chronic and acute serositis and serosal fibrosis. . (BOY:mml; 09/15/2020) QLM 09/15/2020 1648 [facility] . 02 Electronically signed: . Baljeet Kirkland MD, Pathologist NPI- [id number] . 01 Gross description: . A. The specimen is received in a minimal amount of formalin, labeled "Ferdinand Valerio, omentum and small bowel". Received is an unoriented segment of small bowel measuring 33.7 cm in length and ranging in diameter from 3.3 to 4.2 cm. Both margins are stapled closed. The serosal surface is pink-alonso to dusky pink-lainez in appearance. There is a 1.9 cm transmural defect, consistent with perforation, located 5.2 cm from the closest margin. The attached mesenteric fat measures up to 3.8 cm in thickness. The specimen is opened along the antimesenteric line to reveal light alonso, slightly edematous mucosa with normal architectural folds. Sectioning through the attached mesenteric fat reveals a single possible lymph node measuring 0.4 cm in maximum dimensions. . Also received within the specimen container are two segments of yellow-alonso to dusky lainez-yellow omentum measuring 18.8 x 11.2 x 5.1 cm in aggregate dimensions. Sectioning reveals bright yellow [place] [address] PATHOLOGY RPT PROCEDURE Name: АЛЕКСАНДР VALERIO Room: [address] IN [facility].#: [id number] Admission: 09/12/20 Date of : 46 Discharge: Report #: [id number] Path Case #: [id number] surfaces with no grossly distinct nodules or lesions. The specimen is submitted representatively as follows: . A1 margin closest to perforation A2 opposite margin A3 entire area of perforation A4-A5 corporate representative cross-sections of mucosa A6 possible lymph node A7 corporate representative sections of omentum. . B. The specimen is received in formalin, labeled "Ferdinand Valerio, small bowel anastomosis". Received is a segment of small bowel measuring 8.3 cm in length by 3.6 cm in diameter, which is anastomosed to a second segment of small bowel measuring 4.5 cm in length by 2.8 cm in diameter. All margins are stapled closed. The serosal surfaces are dusky pink-lainez in appearance. The attached mesenteric fat measures up to 2.5 cm in thickness. There is a suture present within the bowel wall on the larger segment, which is located 2.1 cm from the closest margin. The specimen is along the antimesenteric line to reveal light alonso mucosa with normal architectural folds within the segment. There is a fresh-appearing anastomotic line identified between each segment measuring 7.2 cm in length. No distinct nodules or lesions are noted grossly. Sectioning through the attached mesenteric fat reveals no readily identifiable lymph nodes. The specimen is submitted representatively as follows: . B1-B2 both margins of larger segment B3-B4 both margins of smaller segment B5 cross section of mucosa where suture was located on larger segment B6 cross-sections of mucosa of larger segment B7 corporate representative sections of anastomotic line B8 corporate representative cross-sections of smaller segment. (CAA; 09/14/2020) QAC/QAC 09/15/2020 1643 Local . 02 Pathologist provided ICD-10: K55.9, K65.8, K52.9 . 02 CPT . 311612, 259221 Specimen Comment: A courtesy copy of this report has been sent to [phone], [phone] Specimen Comment: [id number] Specimen Comment: Report sent to / DR NOONAN Specimen Comment: A duplicate report has been generated due to demographic updates. Performed at: 01 [facility] [place] [address], [place], [place] [id number] MD Asher Boyer MD Phone: [phone] [facility] [address] [place] [address] PATHOLOGY RPT PROCEDURE Name: АЛЕКСАНДР VALERIO Room: [address] IN M.R.#: [id number] Admission: 09/12/20 Date of : 46 Discharge: Report #: [id number] Path Case #: [id number] Performed at: 02 [facility] [address] [place], [place] [id number] MD Baljeet Kirkland MD Phone: [phone]
--- NOTE | 2020-09-20 10:48 | NUR ---
9571 ASSUMED CARE OF PATIENT. PLEASE SEE DOCUMENTED ASSESSMENT. PT IS NPO AT THIS TIME
--- NOTE | 2020-09-20 13:52 | NUR ---
ICU rounds: Dehisced yesterday, retention sutures in place. Wound vac. NG clamped, start liquids. Bowels quiet. On 13L o2. Vitals stable.
--- NOTE | 2020-09-20 18:42 | NUR ---
PATIENT PROGRESSING TOWARDS GOALS. REMAINS ON 13LPM HIGH FLOW CANNULA. POOR EFFORT WITH IS. NG CLAMPED AND TOLERATED. INCISION BENIGN. DRAIN OUTPUT CHARTED. WORKED WITH PHYSICAL THERAPY. STARTED CLEAR LIQUID DIET. RADIOLOGY EXAMS NOTED. HAD VISITOR FROM WHERE HE LIVES.
[2020-09-21] VITALS (10 sets, daily range): BP systolic 58–157; BP diastolic 26–74
[2020-09-21 03:46] LABS: ABSOLUTE LYMPHOCYTES 0.5 thou/uL (0.8-5.3); ABSOLUTE MONOCYTES 0.6 thou/uL (0.0-1.2); ABSOLUTE NEUTROPHILS 13.5 thou/uL (1.6-8.1); BASOPHILS 0.1 %; CALCIUM 8.5 mg/dL (8.5-10.1); CREATININE 0.8 mg/dL (0.6-1.3); HEMATOCRIT 40.9 % (42.0-52.0); HEMOGLOBIN 13.4 gm/dL (14.0-18.0); LYMPHOCYTES 3.7 %; MCH 29.6 pg (26.0-34.0); MCHC 32.9 g/dL (28.0-37.0); MCV 90.1 fL (80.0-100.0); MONOCYTES 4.1 %; MPV 10.4 fl. (7.2-11.1); NUCLEATED RBCS 0 /100WBC; PLATELET COUNT* 105 thou/uL (150-400); POLYS 92.1 %; POTASSIUM 4.4 mmol/L (3.5-5.1); RBC 4.54 mil/uL (4.50-6.00); RDW-CV 14.3 % (10.5-14.5); WBC 14.6 thou/uL (4.0-11.0)
--- NOTE | 2020-09-21 14:26 | NUR ---
orders to transfer patient out of icu. report called to [place]. patient transferred via bed at 219 personal belongings sent with patient.
--- NOTE | 2020-09-21 14:35 | NUR ---
patient blood pressure reading 58/26 not accurate. Vitals stable, patient in stable condition at the time of transfer
[2020-09-22] VITALS (23 sets, daily range): BP systolic 84–148; BP diastolic 32–78
[2020-09-22 04:20] LABS: ABSOLUTE MONOCYTES 0.6 thou/uL (0.0-1.2); ABSOLUTE NEUTROPHILS 12.9 thou/uL (1.6-8.1); BASOPHILS 0.1 %; EOSINOPHILS 0.1 %; HEMATOCRIT 40.7 % (42.0-52.0); HEMOGLOBIN 13.4 gm/dL (14.0-18.0); MCH 29.9 pg (26.0-34.0); MCHC 32.9 g/dL (28.0-37.0); MCV 90.9 fL (80.0-100.0); MONOCYTES 3.8 %; MPV 10.9 fl. (7.2-11.1); NUCLEATED RBCS 0 /100WBC; PLATELET COUNT* 96 thou/uL (150-400); RBC 4.48 mil/uL (4.50-6.00); RDW-CV 14.9 % (10.5-14.5); WBC 14.4 thou/uL (4.0-11.0)
[2020-09-22 04:43] LABS: ALBUMIN 1.8 g/dL (3.4-5.0); CALCIUM 8.1 mg/dL (8.5-10.1); CREATININE 0.7 mg/dL (0.6-1.3); POTASSIUM 3.8 mmol/L (3.5-5.1); TOTAL BILIRUBIN 1.9 mg/dL (<0.1-1.0); TOTAL PROTEIN 4.6 g/dL (6.4-8.2)
[2020-09-22 05:08] LABS: MAGNESIUM 1.8 mg/dL (1.8-2.4); PHOSPHORUS* 2.6 mg/dL (2.5-4.9)
[2020-09-22 05:37] LABS: INR 1.1
[2020-09-22 05:54] LABS: % SATURATION 71 % (20-39); IRON 105 ug/dL (50-175)
--- NOTE | 2020-09-22 07:48 | NUR ---
Alert and oriented x 4. Momitor rhythym SR with PVC's. He is on high flow n/c at 15L. He has had alot of drainage from SHERLYN's x 2. Woundvac is in plae to midline incision at 125mm sontinuously. He has had fentanyl and oxycodone for pain. This am he has had afib on the monitor. Dr Boudreaux notified and orders recieved. Dr Vaz also her this am and aware.
--- NOTE | 2020-09-22 11:50 | NUR ---
CM SPOKE TO THE PT TO DISCUSS CM ASSESSMENT. PT ALERT AND ORIENTED. PT INFORMS THAT HE IS NORMALLY INDEPENDENT WITH ADL'S. PT RESIDES AT HOME WITH A FRIEND AND HER CHILDREN AND HE LIVES IN THE BASEMENT PORTION OF THE HOME. PT USED 0 DME PRIOR TO ADMIT. PT HAS 0 HX OF HH. PT HAS PAST HX OF SNF, BUT COULD NOT RECALL WHERE. CM SPOKE TO THE PT TO DISCUSS D/C PLANNING AND POSSIBLE REHAB VS SNF PLACEMENT AT D/C. PT IN AGREEMENT AND ACKNOWLEDGES THAT HE WILL NEED SOME KIND OF THERAPY AT D/C. CM WILL REMAIN AVAILABLE TO ASSIST AND FOLLOW NEEDED.
--- NOTE | 2020-09-22 12:47 | EKG ---
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: : 1950 Requested By: Rashaad Boudreaux Order Number: [id number] Tomasz MD: Trevor Hoyos Measurements Intervals [place] Rate: 87 P: 39 ME: 200 QRS: 17 QRSD: 138 T: -15 QT: 374 QTc: 450 Interpretive Statements Sinus rhythm Right bundle branch block Compared to ECG 09/15/2020 09:02:07 Ventricular premature complex(es) no longer present Electronically Signed On 09-22-2020 12:46:49 CHILD'S NURSE by Trevor Hoyos [email or web address] <ELECTRONICALLY SIGNED> By: Trevor Hoyos MD, FACC 09/22/20 1246 0837 0837 Trevor Hoyos MD, [facility] /EPI
[2020-09-22 13:08] LABS: HEPATITIS B SURFACE AG Negative (Negative)
[2020-09-22 13:30] LABS: BE 8.6 mmol/L (-2 to +3)
[2020-09-22 13:32] LABS: PO2 39.3 mmHg (75.0-100.0)
[2020-09-22 14:53] LABS: BE 7.9 mmol/L (-2 to +3); PO2 67.3 mmHg (75.0-100.0); pH 7.433 (7.340-7.450)
[2020-09-22 14:58] LABS: PCO2 51.6 mmHg (35.0-45.0)
[2020-09-22 17:57] LABS: HEMATOCRIT 35.7 % (42.0-52.0); HEMOGLOBIN 12.1 gm/dL (14.0-18.0); MCH 31.1 pg (26.0-34.0); MCV 91.5 fL (80.0-100.0); MPV 10.8 fl. (7.2-11.1); NUCLEATED RBCS 0 /100WBC; PLATELET COUNT* 78 thou/uL (150-400); RDW-CV 14.4 % (10.5-14.5); WBC 17.6 thou/uL (4.0-11.0)
[2020-09-22 17:57] LABS: BE 9.8 mmol/L (-2 to +3); PO2 73.7 mmHg (75.0-100.0); pH 7.438 (7.340-7.450)
[2020-09-22 18:01] LABS: ABSOLUTE NEUTROPHILS 16.6 thou/uL (1.6-8.1); POLYS 94.3 %
[2020-09-22 18:02] LABS: ABSOLUTE LYMPHOCYTES 0.4 thou/uL (0.8-5.3); ABSOLUTE MONOCYTES 0.6 thou/uL (0.0-1.2); BASOPHILS 0.1 %; EOSINOPHILS 0.1 %; LYMPHOCYTES 2.1 %; MONOCYTES 3.4 %
[2020-09-22 18:05] LABS: PCO2 54.2 mmHg (35.0-45.0)
[2020-09-22 18:14] LABS: CREATININE 0.8 mg/dL (0.6-1.3); POTASSIUM 4.1 mmol/L (3.5-5.1)
[2020-09-22 18:18] LABS: ALBUMIN 1.5 g/dL (3.4-5.0); MAGNESIUM 1.7 mg/dL (1.8-2.4); PHOSPHORUS* 3.7 mg/dL (2.5-4.9); TOTAL BILIRUBIN 1.8 mg/dL (<0.1-1.0)
--- NOTE | 2020-09-22 19:51 | NUR ---
PATIENT INTUBATED IN PACU AND ADMITTED INTO ROOM 6 AT 1645. ARRIVED INTUBATED AND SEDATED. PLACED ON MONITOR, SR WITH PVCS NOTED. MIDLINE INCISION COVED WITH WOUND VAC IN PLACE.
[2020-09-23] VITALS (78 sets, daily range): BP systolic 67–137; BP diastolic 42–99
--- NOTE | 2020-09-23 01:03 | NUR ---
recieved report and assumed care of pt.
[2020-09-23 03:50] LABS: ABSOLUTE LYMPHOCYTES 0.3 thou/uL (0.8-5.3); ABSOLUTE MONOCYTES 0.2 thou/uL (0.0-1.2); ABSOLUTE NEUTROPHILS 10.7 thou/uL (1.6-8.1); HEMATOCRIT 36.5 % (42.0-52.0); HEMOGLOBIN 12.2 gm/dL (14.0-18.0); LYMPHOCYTES 2.5 %; MCH 30.2 pg (26.0-34.0); MCHC 33.4 g/dL (28.0-37.0); MCV 90.5 fL (80.0-100.0); MONOCYTES 1.4 %; MPV 11.1 fl. (7.2-11.1); NUCLEATED RBCS 0 /100WBC; PLATELET COUNT* 71 thou/uL (150-400); POLYS 96.1 %; RBC 4.03 mil/uL (4.50-6.00); RDW-CV 14.6 % (10.5-14.5); WBC 11.2 thou/uL (4.0-11.0)
[2020-09-23 04:24] LABS: ALBUMIN 2.2 g/dL (3.4-5.0); CREATININE 0.9 mg/dL (0.6-1.3); MAGNESIUM 2.2 mg/dL (1.8-2.4); POTASSIUM 4.3 mmol/L (3.5-5.1); TOTAL BILIRUBIN 2.3 mg/dL (<0.1-1.0); TOTAL PROTEIN 4.8 g/dL (6.4-8.2)
[2020-09-23 06:01] LABS: LIPASE 30 U/L (73-393); TRIGLYCERIDE 69 mg/dL (<150)
--- NOTE | 2020-09-23 07:23 | NUR ---
RIGHT BASILIC VESSEL ACCESSED FOR 5 SAMMARINESE TRIPLE LUMEN PICC. LINE PRE-TRIMMED TO 41CM AND ADVANCED TO THE ZERO FREDY WITH NO RESISTANCE MET. UPPER ARM CIRCUMFERENCE ABOVE INSERTION SITE=14". SHERLOCK MAGNET ANED 3CG CONFIRMATION OF TIP TERMINATION AT THE CAVOATRIAL JUNCTION APPRECIATED. GUIDEWIRE REMOVED, LINE FLUSHED AND INSERTION SITE DRESSED. REPORT GIVEN TO GHAZAL MCCULLOUGH.
[2020-09-23 09:09] LABS: BE 6.2 mmol/L (-2 to +3); PCO2 40.1 mmHg (35.0-45.0); PO2 69.4 mmHg (75.0-100.0); pH 7.492 (7.340-7.450)
--- NOTE | 2020-09-23 14:08 | NUR ---
ICU rounds: Transferred down from tele yesterday. On vent. FIO2 70%, peer 8. Propofol and fentanyl.
[2020-09-23 18:12] LABS: CALCIUM 8.7 mg/dL (8.5-10.1); CREATININE 0.9 mg/dL (0.6-1.3); MAGNESIUM 2.2 mg/dL (1.8-2.4); POTASSIUM 3.8 mmol/L (3.5-5.1)
--- NOTE | 2020-09-23 18:25 | NUR ---
NO ACUTE EVENTS, VSS. ATTEMPTING TO TITRATE PROPOFOL OFF IN FAVOR OF PRECEDEX. PT REQUIRED VERSED PUSH TO TRANSITION. PROPOFOL NOW AT 10/PRECEDEX AT 0.06. PT RASS: 0. NODS APPROPRIATELY AND FOLLOWS COMMANDS. PT C/O ITCHINESS AROUND SURGICAL SITE. BENADRYL GIVEN PER NOV.
[2020-09-24] VITALS (37 sets, daily range): BP systolic 91–215; BP diastolic 48–210
[2020-09-24 05:29] LABS: HEMATOCRIT 34.3 % (42.0-52.0); HEMOGLOBIN 11.6 gm/dL (14.0-18.0); MCH 30.6 pg (26.0-34.0); MCHC 33.8 g/dL (28.0-37.0); MCV 90.5 fL (80.0-100.0); MPV 11.3 fl. (7.2-11.1); RBC 3.79 mil/uL (4.50-6.00); RDW-CV 14.7 % (10.5-14.5); WBC 9.6 thou/uL (4.0-11.0)
[2020-09-24 06:02] LABS: CALCIUM 8.6 mg/dL (8.5-10.1); CREATININE 0.8 mg/dL (0.6-1.3); MAGNESIUM 2.3 mg/dL (1.8-2.4); POTASSIUM 4.1 mmol/L (3.5-5.1)
--- NOTE | 2020-09-24 06:50 | NUR ---
ASSUMED PATIENT CARE AT 1900. ASSESSMENTS COMPLETED CHARTED. CARDIAC MONITORING IN PLACE. PATIENT ARTERIAL LINE REMAINS IN PLACE AND WORKING BUT IS POSITIONAL. MIDLINE DRESSING INTACT WITH 55ML OF DRAINAGE. PROPOFOL TITRATED OFF AND PRECEDEX TITRATED UP TO MAINTAIN VENT EFFICACY. PATIENT TURNED Q2 FOR SKIN INTEGRITY AND COMFORT. NO BOWEL MOVEMENT DURING SHIFT. BED LOCKED AND IN LOWEST POSITION.
--- NOTE | 2020-09-24 17:27 | NUR ---
NO ACUTE EVENTS. VSS, SEDATION TITRATED FOR RASS -2 PER MD. PRECEDEX AT 1.4 AT MD REQUEST FOR VENT COMPLIANCE. PRN VERSED PUSH PRN. Q2H AND PRN ORAL CARE AND REPOSITION. RESTRAINTS REMAIN FOR PT SAFETY WITH LINES AND TUBES. ALL TUBE FEED PUMPS IN USE, WILL REEVALUATE WHEN MACHINES BECOME AVAILABLE.
[2020-09-25] VITALS (65 sets, daily range): BP systolic 84–161; BP diastolic 43–95
[2020-09-25 05:59] LABS: ABSOLUTE LYMPHOCYTES 0.2 thou/uL (0.8-5.3); ABSOLUTE MONOCYTES 0.5 thou/uL (0.0-1.2); ABSOLUTE NEUTROPHILS 9.5 thou/uL (1.6-8.1); BASOPHILS 0.2 %; HEMATOCRIT 35.6 % (42.0-52.0); LYMPHOCYTES 1.7 %; MCH 30.3 pg (26.0-34.0); MCHC 33.6 g/dL (28.0-37.0); MONOCYTES 4.9 %; MPV 11.8 fl. (7.2-11.1); NUCLEATED RBCS 0 /100WBC; PLATELET COUNT* 67 thou/uL (150-400); POLYS 93.2 %; RBC 3.96 mil/uL (4.50-6.00); RDW-CV 14.5 % (10.5-14.5); WBC 10.2 thou/uL (4.0-11.0)
[2020-09-25 06:17] LABS: ALBUMIN 2.8 g/dL (3.4-5.0); CALCIUM 8.1 mg/dL (8.5-10.1); CREATININE 0.7 mg/dL (0.6-1.3); POTASSIUM 3.4 mmol/L (3.5-5.1); TOTAL PROTEIN 5.2 g/dL (6.4-8.2)
--- NOTE | 2020-09-25 06:51 | NUR ---
ASSUMED PATIENT CARE AT 1900. ASSESSMENTS COMPLETED CHARTED. CARDIAC MONITORING IN PLACE. SEROSANGUINEOUS DRAINAGE FROM LEFT AND RIGHT SHERLYN DRAINS, SEE CHARTING FOR OUTPUT AMOUNTS. VERSED DRIP STARTED AND TITRATED PER DR. STOUT'S ORDERS FOR PATIENT AGITATION. SEDATION TITRATED PER ICU PROTOCOL FOR VENT EFFICACY AND PATIENT COMFORT. Q2 TURNS FOR SKIN INTEGRITY AND PATIENT COMFORT. NO BOWEL MOVEMENTS THIS SHIFT. BED LOCKED AND IN LOWEST POSITION.
[2020-09-25 08:41] LABS: BE 9.3 mmol/L (-2 to +3); PCO2 47.1 mmHg (35.0-45.0); PO2 69.5 mmHg (75.0-100.0); pH 7.479 (7.340-7.450)
[2020-09-25 17:24] LABS: CALCIUM 9.3 mg/dL (8.5-10.1); CREATININE 0.9 mg/dL (0.6-1.3); POTASSIUM 3.7 mmol/L (3.5-5.1)
[2020-09-26] VITALS (96 sets, daily range): BP systolic 80–139; BP diastolic 44–75
[2020-09-26 04:06] LABS: HEMATOCRIT 33.7 % (42.0-52.0); HEMOGLOBIN 11.4 gm/dL (14.0-18.0); MCH 30.6 pg (26.0-34.0); MCHC 33.7 g/dL (28.0-37.0); MCV 90.7 fL (80.0-100.0); NUCLEATED RBCS 0 /100WBC; PLATELET COUNT* 63 thou/uL (150-400); RBC 3.72 mil/uL (4.50-6.00); RDW-CV 14.4 % (10.5-14.5); WBC 11.9 thou/uL (4.0-11.0)
[2020-09-26 04:27] LABS: CALCIUM 8.7 mg/dL (8.5-10.1); CREATININE 1.1 mg/dL (0.6-1.3); MAGNESIUM 2.1 mg/dL (1.8-2.4); TOTAL BILIRUBIN 1.6 mg/dL (<0.1-1.0); TOTAL PROTEIN 5.3 g/dL (6.4-8.2)
[2020-09-26 07:07] LABS: ABSOLUTE LYMPHOCYTES 0.1 thou/uL (0.8-5.3); ABSOLUTE MONOCYTES 0.2 thou/uL (0.0-1.2); ABSOLUTE NEUTROPHILS 11.5 thou/uL (1.6-8.1); PLATELET ESTIMATE DECREASED
--- NOTE | 2020-09-26 14:33 | NUR ---
ICU rounds: On vent, sedated. Tube feeds. No BM. Surgery following.
--- NOTE | 2020-09-26 21:49 | NUR ---
NOTIFIED DR VIDAL PT'D TUBE FEEDING RESIDUAL > 500. TUBE FEEDING STOPPED, KUB ORDERED IN AM TO RULE OUT OBSTRUCTION OR ILEUS.
[2020-09-27] VITALS (53 sets, daily range): BP systolic 82–145; BP diastolic 49–79
[2020-09-27 03:55] LABS: ABSOLUTE LYMPHOCYTES 0.1 thou/uL (0.8-5.3); ABSOLUTE MONOCYTES 0.2 thou/uL (0.0-1.2); ABSOLUTE NEUTROPHILS 9.1 thou/uL (1.6-8.1); BASOPHILS 0.3 %; HEMOGLOBIN 12.1 gm/dL (14.0-18.0); LYMPHOCYTES 1.4 %; MCH 30.1 pg (26.0-34.0); MCHC 33.5 g/dL (28.0-37.0); MCV 89.9 fL (80.0-100.0); MONOCYTES 1.9 %; MPV 11.6 fl. (7.2-11.1); NUCLEATED RBCS 0 /100WBC; PLATELET COUNT* 53 thou/uL (150-400); POLYS 96.4 %; RBC 4.01 mil/uL (4.50-6.00); RDW-CV 14.4 % (10.5-14.5); WBC 9.4 thou/uL (4.0-11.0)
[2020-09-27 04:10] LABS: ALBUMIN 2.9 g/dL (3.4-5.0); CALCIUM 8.5 mg/dL (8.5-10.1); CREATININE 0.8 mg/dL (0.6-1.3); MAGNESIUM 2.2 mg/dL (1.8-2.4); POTASSIUM 4.7 mmol/L (3.5-5.1); TOTAL BILIRUBIN 1.8 mg/dL (<0.1-1.0); TOTAL PROTEIN 5.2 g/dL (6.4-8.2)
--- NOTE | 2020-09-27 08:02 | CON ---
[address] [address] CONSULTATION Name: LUIS FELIPE MAKI Room: [address] IN M.R.#: [id number] Admission: 09/12/20 Attend Phys: Tay Mujica Discharge: Date of : 46 Report #: [id number] THIS REPORT FOR: cc: FAM - No family physician/PCP FAM - No family physician/PCP ~ Luis Felipe Lynn DO DATE OF SERVICE: 09/21/2020 GASTROENTEROLOGY CONSULTATION REFERRING PHYSICIAN: Dr. Rashaad Boudreaux. PRIMARY CARE PROVIDER: The patient has no primary care provider. REASON FOR CONSULTATION: Ascites. IMPRESSION: 1. Ascites secondary to portal hypertension. 2. Cirrhosis due to previous alcohol abuse. 3. Status post repair of incarcerated umbilical hernia with need for emergency surgery due to small bowel perforation followed by repeat surgery for fascial dehiscence. 4. Respiratory failure requiring high-flow oxygen. RECOMMENDATIONS: 1. We will increase the patient's diuretics. 2. Aldactone 100 mg and Lasix 40 mg twice daily for now and monitor his vitals, monitor his renal output as well as renal function. 3. We would add albumin 25 grams IV every 6 hours to help improve oncotic pressure and to prevent further third spacing. 4. We will discontinue the SHERLYN drain which was draining ascitic fluid and place an ostomy bag over the site as it may continue to leak even after removal. 5. We will place the patient on 2-g sodium restricted diet. 6. We will check additional labs to see if there is anything else other than previous alcohol abuse as a cause for his decompensated liver disease. I have discussed these plans with the patient as well and he is agreeable to the same. HISTORY OF PRESENT ILLNESS: The patient is a 69-year-old white male who was admitted to hospital on 09/12 with findings of a small bowel obstruction secondary to incarcerated umbilical hernia. He had undergo emergency surgery for the same followed by second surgery because of fascial dehiscence, he is now here in followup in the ICU. Postoperatively, he developed ascites, which has been difficult to control and he has a SHERLYN drain draining ascitic fluid, which is full clear. He has a prior history of major alcohol abuse, [place] [address] CONSULTATION Name: SHANTHILUIS FELIPE Caitlin Room: [address] IN [facility]#: [id number] Admission: 09/12/20 Attend Phys: Tay Mujica Discharge: Date of : 46 Report #: [id number] long time ago. He also states he has a history of "partying" and recreational drug use, but it has been a number of years. He did not know that he had cirrhosis or liver disease. He does not have a primary care provider outside the hospital. He has had no real followup. ALLERGIES: Upon admission his allergies were none. MEDICATIONS AT HOME: None. PAST MEDICAL HISTORY: Significant for COPD and diabetes. He denies taking any medications on a regular basis. SOCIAL HISTORY: The patient was previously major alcoholic, quit about 4-5 years ago because he wanted to stop. He has a history of remote drug use. FAMILY HISTORY: Negative. PHYSICAL EXAMINATION: GENERAL: Revealed an ill-appearing 69-year-old gentleman who is awake and alert. CARDIOPULMONARY: Revealed a regular rate and rhythm with diminished breath sounds throughout. He had rhonchi throughout. ABDOMEN: Soft, mildly distended. He has SHERLYN drain draining ascitic fluid. His liver is firm and nodular. LABORATORY DATA: His laboratory test from the revealed a white count of 14.6, hemoglobin 13.4, platelet count 105,000, MCV is 90.1 and RDW 14.3. His sodium is 137, potassium 4.4, chloride 102, bicarbonate is 35, his BUN is 24 and creatinine 0.8. GFR of 95. His bilirubin on the was 1.2, alkaline phosphatase 70, AST 29, ALT 29 and albumin was 2.1. On admission, the patient's bilirubin was 2.3, alkaline phosphatase was 128, AST 29, ALT 22 and albumin of 2.9. CT scan of the abdomen and pelvis was performed on the revealed no evidence for pulmonary embolism. Heart is normal. CT scan revealed diffusely nodular liver compatible with cirrhosis with no hepatic mass or ductal dilation. There are dependent gallstones within the gallbladder. Small amount of fluid along the inferior portion of the gallbladder and the inferior margin of the liver. The spleen, pancreas, adrenal glands and right kidney are unremarkable. Distal esophagus and stomach are unremarkable. There is a ventral abdominal hernia containing fat and small bowel plus dilated loops of ____ proximal to the bowel within the hernia sac with high-grade obstruction at the site of the hernia. DISCUSSION: At the present time, the patient has postoperative ascites [address] [address] CONSULTATION Name: LUIS FELIPE MAKI Room: [facility] ADM IN M.R.#: [id number] Admission: 09/12/20 Attend Phys: Tay Mujica Discharge: Date of : 46 Report #: [id number] secondary to decompensated liver disease. We will proceed with this patient on diuretic regimen, 2-g sodium restricted diet and follow him while in the hospital. I have discussed the plans with the patient as well and he is agreeable to the same. <ELECTRONICALLY SIGNED> By: Luis Felipe Lynn DO 09/27/20 0802 03 jacinta Lynn DO /harono
[2020-09-27 11:29] LABS: BE 3.8 mmol/L (-2 to +3); pH 7.469 (7.340-7.450)
[2020-09-27 11:30] LABS: PO2 58.6 mmHg (75.0-100.0)
--- NOTE | 2020-09-27 15:15 | NUR ---
ICU rounds: Extubated today. KUB done, full of stool. TF off
--- NOTE | 2020-09-27 22:31 | NUR ---
SPOKE WITH DR HAWTHORNE REGARDING TACHYCARDIA IN 120'S. RECIEVED ORDER FOR SALINE BOLUS.
[2020-09-28] VITALS (47 sets, daily range): BP systolic 89–134; BP diastolic 50–81
[2020-09-28 04:20] LABS: HEMATOCRIT 38.5 % (42.0-52.0); HEMOGLOBIN 12.8 gm/dL (14.0-18.0); MCH 29.8 pg (26.0-34.0); MCHC 33.2 g/dL (28.0-37.0); MCV 89.9 fL (80.0-100.0); MPV 11.6 fl. (7.2-11.1); NUCLEATED RBCS 0 /100WBC; PLATELET COUNT* 85 thou/uL (150-400); RBC 4.29 mil/uL (4.50-6.00); RDW-CV 14.8 % (10.5-14.5); WBC 23.5 thou/uL (4.0-11.0)
[2020-09-28 05:02] LABS: ALBUMIN 2.6 g/dL (3.4-5.0); CALCIUM 8.6 mg/dL (8.5-10.1); CREATININE 0.8 mg/dL (0.6-1.3); POTASSIUM 3.4 mmol/L (3.5-5.1); TOTAL BILIRUBIN 3.3 mg/dL (<0.1-1.0); TOTAL PROTEIN 4.5 g/dL (6.4-8.2)
[2020-09-28 06:44] LABS: ABSOLUTE LYMPHOCYTES 0.7 thou/uL (0.8-5.3); ABSOLUTE MONOCYTES 0.2 thou/uL (0.0-1.2); ABSOLUTE NEUTROPHILS 22.6 thou/uL (1.6-8.1); PLATELET ESTIMATE DECREASED
[2020-09-28 06:45] LABS: ANISOCYTOSIS 1+; POIKILOCYTOSIS 1+
--- NOTE | 2020-09-28 06:52 | NUR ---
ACCU CHECK AT 0620 47. PT GIVEN 1/2 AMP D50. BLOOD SUGAR AT 0645 112
--- NOTE | 2020-09-28 14:33 | EKG ---
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: PB : 1950 Requested By: Xiao Pfeiffer Order Number: [id number] Reading MD: Rick Galloway Measurements Intervals [place] Rate: 140 P: 93 NE: 98 QRS: 54 QRSD: 136 T: -56 QT: 280 QTc: 427 Interpretive Statements Sinus tachycardia with PACs Paired ventricular premature complexes Right bundle branch block Compared to ECG 09/22/2020 08:37:45 Ventricular premature complex(es) now present Sinus rate has increased Electronically Signed On 09-28-2020 14:33:35 ELECTRON BEAM MACHINE WELDER SETTER by Rick Galloway [email or web address] <ELECTRONICALLY SIGNED> By: Rick Galloway MD, FACC 09/28/20 1433 1021 1021 Rick Galloway MD, FAC /EPI
--- NOTE | 2020-09-28 14:34 | NUR ---
ICU rounds: On 10L o2, work to wean. Per surgery, Pt not tele status. Cardiology consulted.
--- NOTE | 2020-09-28 18:43 | NUR ---
Pt resting comfortably throughout shift. Pt has been tachycardic throughout shift. Ranging from 125-157. Digoxin ordered and resulted in lower tachycardia ranging from 101-115. Pt co pain, slightly controlled with oxycodone. Pt refusing turns but ok with adjusting with a pillow at times. Good output in endy drains. Surgery removed woundvac, sutures and kristofer in place with no s/s of infection.
[2020-09-29] VITALS (23 sets, daily range): BP systolic 97–191; BP diastolic 55–108
[2020-09-29 02:58] LABS: ABSOLUTE LYMPHOCYTES 0.4 thou/uL (0.8-5.3); ABSOLUTE MONOCYTES 0.3 thou/uL (0.0-1.2); ABSOLUTE NEUTROPHILS 18.7 thou/uL (1.6-8.1); BASOPHILS 0.2 %; HEMOGLOBIN 12.5 gm/dL (14.0-18.0); LYMPHOCYTES 1.9 %; MCHC 32.8 g/dL (28.0-37.0); MCV 91.5 fL (80.0-100.0); MONOCYTES 1.5 %; MPV 11.5 fl. (7.2-11.1); NUCLEATED RBCS 0 /100WBC; PLATELET COUNT* 53 thou/uL (150-400); POLYS 96.4 %; RBC 4.16 mil/uL (4.50-6.00); RDW-CV 14.9 % (10.5-14.5); WBC 19.4 thou/uL (4.0-11.0)
[2020-09-29 03:28] LABS: ALBUMIN 2.4 g/dL (3.4-5.0); CALCIUM 8.2 mg/dL (8.5-10.1); MAGNESIUM 2.1 mg/dL (1.8-2.4); POTASSIUM 4.6 mmol/L (3.5-5.1); TOTAL BILIRUBIN 3.9 mg/dL (<0.1-1.0); TOTAL PROTEIN 4.8 g/dL (6.4-8.2)
--- NOTE | 2020-09-29 15:30 | NUR ---
ICU rounds: Tele status. No BMs, laxatives today. SHERLYN drainage slowed. Picc and avila
--- NOTE | 2020-09-29 15:53 | NUR ---
RECIEVIED REPORT FROM DOROTHY RN IN ICU OF EXPECTED TRANSFER AT 1517- PT ARRIVED TO UNIT VIA BED AT 1537- PT TRANSFERED TO BED X4 VIA SLIDE- FISHING GEAR MECHANIC PLACED ORDERED, TRACING SR- VSS, O2 SAT 93% ON 10L VIA HFNC- PRIOR ASSESSMENT REVIEWED AND THIS NURSE AGREES- ABD BINDER NOTED C/D/I INDICATED- RIGHT LOWER ABD AND LEFT ABD SHERLYN DRAINS NOTED TO BE INTACT D/D SERIOUSANGIOUS FLUID, REPORTED TO HAVE BEEN EMPTIED PRIOR TO TRANSFER- HERNANDEZ IN PLACE D/D BRYAN URINE-DISCOLORATION/PINKNESS NOTED TO BOTTOM- PT REPORTS PAIN 02/23 TO ABD-CALL LIGHT AND PERSONAL BELONGINGS WITH IN REACH- ALL NEEDS MET AT THIS TIME-YUE
[2020-09-30] VITALS (7 sets, daily range): BP systolic 98–136; BP diastolic 52–69
--- NOTE | 2020-09-30 08:11 | NUR ---
PT IS ABLE TO COMMUNICATE HIS NEEDS TO STAFF EFFECTIVELY. CURRENT PAIN MEDICATION REGIMEN HAS BEEN ADEQUATE FOR CONTROLLING HIS PAIN UP TO THIS TIME. MELISSA SIDDIQUI MAINTIANED. LT AND RT SHERLYN DRAINS PATENT AND HAVE SEROSANG DRAINAGE. SURGERY FOLLOWING. HERNANDEZ HAS BEEN PATENT UP TO 0700 THIS MORNING.
--- NOTE | 2020-09-30 13:00 | NUR ---
Per PT, recommending ARU at dc. SHERLYN drain remains in. Anticipate dc in a few days.
--- NOTE | 2020-09-30 19:59 | NUR ---
RECIEVED REPORT AROUND 714. ASSUMED CARE. VS AND ASSESSMENT CHARTED. PT LYING IN BED. Q2 TURN. MEDS GIVEN PER MAR. PT STATED "NO" TO ANY PAIN THIS AM. MEDS GIVEN PER NOV. HOURLY ROUNDING PERFORMED. PT TOLERATED CARB CONSISTENT DIET THIS SHIFT. SHERLYN DRAINS INTACT. HERNANDEZ D/C'D THIS AM. PT PUT OUT 25ML. PHYSICAL THERAPY WORKED WITH PT. UNABLE TO GET TO CHAIR DUE TO LOCKING OF KNEES. CALL LIGHT WTIHIN REACH. REPORT GIVEN TO NIGHT NURSE. NIGHT NURSE ASSUMED CARE.
[2020-10-01 04:21] VITALS: BP 121/50
[2020-10-01 04:21] LABS: HEMATOCRIT 31.6 % (42.0-52.0); HEMOGLOBIN 10.6 gm/dL (14.0-18.0); MCH 30.5 pg (26.0-34.0); MCHC 33.5 g/dL (28.0-37.0); MCV 90.9 fL (80.0-100.0); MPV 11.7 fl. (7.2-11.1); NUCLEATED RBCS 0 /100WBC; RBC 3.47 mil/uL (4.50-6.00); RDW-CV 14.7 % (10.5-14.5); WBC 11.9 thou/uL (4.0-11.0)
[2020-10-01 04:32] LABS: ALBUMIN 2.2 g/dL (3.4-5.0); CALCIUM 8.4 mg/dL (8.5-10.1); CREATININE 0.8 mg/dL (0.6-1.3); MAGNESIUM 2.1 mg/dL (1.8-2.4); PHOSPHORUS* 2.4 mg/dL (2.5-4.9); POTASSIUM 4.6 mmol/L (3.5-5.1); TOTAL BILIRUBIN 2.9 mg/dL (<0.1-1.0); TOTAL PROTEIN 4.6 g/dL (6.4-8.2)
--- NOTE | 2020-10-01 04:57 | NUR ---
PT IS ABLE TO COMMUNICATE HIS NEEDS TO STAFF WITH MINOR DIFFICULTY; HE CAN BE IMPULSIVE AND IS CONFUSED AT TIMES. CURRENT PAIN MEDICATION REGIMEN HAS BEEN ADEQUATE FOR CONTROLLING HIS PAIN UP TO THIS TIME. PT HAS BEEN VOIDING CONSISTENTLY OVERNIGHT, UP TO THIS TIME. ACTIVE BS AND IS HAVING BMs AT THIS TIME. SHERLYN DRAINS ARE PATENT UP TO THIS TIME.
[2020-10-01 05:27] LABS: PLATELET COUNT* 43 thou/uL (150-400)
[2020-10-01 06:20] LABS: ABSOLUTE LYMPHOCYTES 0.4 thou/uL (0.8-5.3); ABSOLUTE MONOCYTES 0.1 thou/uL (0.0-1.2); ABSOLUTE NEUTROPHILS 11.4 thou/uL (1.6-8.1); ATYPICAL LYMPHS 1 %; PLATELET ESTIMATE DECREASED
[2020-10-01 08:00] VITALS: BP 117/64
--- NOTE | 2020-10-01 08:00 | NUR ---
AM ASSESSMENT COMPLETE, DEFER TO COMPUTER CHARTING. CARE ASSISTANT TRACKING SR WITH 1ST AVB. REPORTING HAVING ABD DISCOMFORT, REFUSING PAIN MEDICATION WHEN OFFERED AT THIS TIME - STATING PAIN IS OKAY AT THIS TIME. 02 ON 10L PER NC, 02 SAT 94%. ABD INCSION APPORX WITH RETENTION SUTURES, PATRICA INTACT WITH NO SIGN OF INFECTION - ABD BINDER IN PLACE. CALL LIGHT WITHIN REACH. WILL MONITOR.
[2020-10-01 11:49] VITALS: BP 135/60
[2020-10-01 15:58] VITALS: BP 100/58
--- NOTE | 2020-10-01 18:46 | NUR ---
RURAL SOCIOLOGIST TRACKING WITH NO CHANGE IN RHYTHM. CONTINUES TO TAKE 02 OFF, REPLACED BY NURSING EDUCATED ON IMPORTANCE OF WEARING 02. TOLERATING DIET WITH NO COMPLAINTS OF NAUSEA. GIVEN PO PAIN MEDICATION X 1 DURING SHIFT FOR COMPLAINTS OF ABD DISCOMFORT, REPORTING PARTIAL RELIEF. INCONTINENT OF 5 LOOSE SOFT, NEERAJ CARE GIVEN - BARRIER CREAM APPLIED. HOB ELEVATED, CALL LIGHT WITHIN REACH. WILL CONTINUE WITH PLAN OF CARE.
[2020-10-01 20:00] VITALS: BP 130/68
[2020-10-01 23:39] VITALS: BP 131/63
[2020-10-02 05:02] VITALS: BP 120/57
[2020-10-02 05:42] LABS: HEMATOCRIT 31.6 % (42.0-52.0); HEMOGLOBIN 10.6 gm/dL (14.0-18.0); MCH 30.7 pg (26.0-34.0); MCHC 33.4 g/dL (28.0-37.0); MCV 91.8 fL (80.0-100.0); MPV 12.1 fl. (7.2-11.1); RBC 3.44 mil/uL (4.50-6.00); RDW-CV 14.8 % (10.5-14.5); WBC 9.8 thou/uL (4.0-11.0)
--- NOTE | 2020-10-02 05:55 | NUR ---
ASSUMED PT CARE AT 1910. SR 1D PVCS ON OUTBOUND SALES PROFESSIONAL. NO COMPLAINTS THIS SHIFT. PT WORE BIPAP FOR APPROXIMATELY ONE HOUR THIS SHIFT AND REFUSED TO WEAR. CONTINUES ON 8L O2 ON HF NC. HOURLY ROUNDING COMPLETED. HIGH FALL PRECAUTIONS IN PLACE, Q2H REPOSITIONING COMPLETED. CALL LIGHT WITHIN REACH.
[2020-10-02 06:06] LABS: ALBUMIN 2.2 g/dL (3.4-5.0); CALCIUM 8.1 mg/dL (8.5-10.1); CREATININE 0.8 mg/dL (0.6-1.3); PHOSPHORUS* 2.7 mg/dL (2.5-4.9); POTASSIUM 4.4 mmol/L (3.5-5.1); TOTAL BILIRUBIN 2.5 mg/dL (<0.1-1.0); TOTAL PROTEIN 4.4 g/dL (6.4-8.2)
[2020-10-02 08:00] VITALS: BP 113/62
--- NOTE | 2020-10-02 10:26 | NUR ---
RECEIVED REPORT AROUND 0715. ASSUMED CARE. VS AND ASSESSMENT CHARTED. PT STATED "MY BOTTOM HURTS". RATED "6" OUT OF 10 PAIN. PT LYING IN BED. Q2 TURNS. MEDS GIVEN PER NOV. IV INTACT RIGHT UPPER ARM PICC TRIPLE LUMEN. HEART MONITOR ATTACHED AT BBB WITH PVC'S. ABDOMINAL BINDER IN PLACE. SHERLYN DRAINS INTACT. CALL LIGHT WITHIN REACH. WILL CONTINUE TO MONITOR.
[2020-10-02 12:00] VITALS: BP 110/51
[2020-10-02 16:00] VITALS: BP 126/60
--- NOTE | 2020-10-02 19:38 | NUR ---
NO NEW CHANGES. IV INTACT. RIGHT PICC UPPER ARM. HEART MONITOR ATTACHED AT SR WITH 1ST D. PT HAS BEEN REFUSIGN Q2 AT TIMES. ISN'T ALWAYS KEEPING OXYGEN ON. PT LYING IN BED. VERY WEAK. SHERLYN DRAINS INTACT. ABDOMINAL BINDER INTACT. 8L HI FLOW NC. MEDS GIVEN PER MAR. HOURLY ROUNDING PERFORMED. CALL LIGHT WITHIN REACH. WILL CONTINUE TO MONITOR.
[2020-10-02 22:00] VITALS: BP 130/60
[2020-10-03 00:13] VITALS: BP 137/64
[2020-10-03 04:40] LABS: HEMOGLOBIN 11.2 gm/dL (14.0-18.0); MCH 30.9 pg (26.0-34.0); MCV 90.9 fL (80.0-100.0); MPV 11.3 fl. (7.2-11.1); RBC 3.64 mil/uL (4.50-6.00); WBC 7.9 thou/uL (4.0-11.0)
[2020-10-03 04:58] LABS: MAGNESIUM 2.2 mg/dL (1.8-2.4); PHOSPHORUS* 3.2 mg/dL (2.5-4.9)
[2020-10-03 04:59] LABS: INR 1.2; PROTIME 12.8 Seconds (9.20-11.50)
[2020-10-03 05:01] LABS: ALBUMIN 2.2 g/dL (3.4-5.0); CALCIUM 8.1 mg/dL (8.5-10.1); CREATININE 0.8 mg/dL (0.6-1.3); POTASSIUM 3.9 mmol/L (3.5-5.1); TOTAL BILIRUBIN 2.6 mg/dL (<0.1-1.0); TOTAL PROTEIN 4.8 g/dL (6.4-8.2)
--- NOTE | 2020-10-03 05:55 | NUR ---
ASSUMED CARE OF PT AT 2330. AGREE WITH PREVIOUS ASSESSMENT. OXYCODONE GIVEN THIS AM FOR GROIN PAIN.
[2020-10-03 08:00] VITALS: BP 127/69
[2020-10-03 12:02] VITALS: BP 120/62
--- NOTE | 2020-10-03 13:55 | NUR ---
SHERLYN drain in place. ARU consult placed
[2020-10-03 20:22] VITALS: BP 113/64
--- NOTE | 2020-10-03 20:43 | NUR ---
ASSUMED PT CARE AT 0730, PT AOX2-3, CONFUSED AND FREQUENTLY PULLS OXYGEN OFF. PT BEING TURNED Q2H, IS INCONTINENT OF BOWEL AND BEING CLEANED UP FREQUENTLY. BARRIER CREAM BEING USED EVERY TIME PT IS CLEANED UP. PT FREQUENTLY REMINDED TO KEEP OXYGEN ON, SATS MORE ACCURATE WHEN TAKEN ON EAR. PT GOAL IS IS TO KEEP O2 ABOVE 90% AND REMAIN FREE FROM SKIN BREAKDOWN. MEDS PER MAR, HOURLY ROUNDING OBSERVED, FALL PRECAUTIONS IN PLACE, CALL LIGHT W/IN REACH.
[2020-10-03 23:48] VITALS: BP 124/67
[2020-10-04 05:26] VITALS: BP 127/68
[2020-10-04 05:55] LABS: ABSOLUTE EOSINOPHILS 0.1 thou/uL (0.0-0.7); ABSOLUTE LYMPHOCYTES 0.9 thou/uL (0.8-5.3); ABSOLUTE MONOCYTES 0.4 thou/uL (0.0-1.2); ABSOLUTE NEUTROPHILS 7.8 thou/uL (1.6-8.1); BASOPHILS 0.2 %; EOSINOPHILS 0.8 %; HEMOGLOBIN 11.6 gm/dL (14.0-18.0); LYMPHOCYTES 9.8 %; MCH 30.6 pg (26.0-34.0); MPV 10.8 fl. (7.2-11.1); NUCLEATED RBCS 0 /100WBC; PLATELET COUNT* 61 thou/uL (150-400); POLYS 85.2 %; RBC 3.78 mil/uL (4.50-6.00); RDW-CV 14.9 % (10.5-14.5); WBC 9.2 thou/uL (4.0-11.0)
[2020-10-04 06:22] LABS: PREALBUMIN 12.9 mg/dL (18.0-35.7)
[2020-10-04 06:24] LABS: ALBUMIN 2.2 g/dL (3.4-5.0); CREATININE 0.8 mg/dL (0.6-1.3); MAGNESIUM 2.1 mg/dL (1.8-2.4); POTASSIUM 3.8 mmol/L (3.5-5.1); TOTAL BILIRUBIN 2.2 mg/dL (<0.1-1.0); TOTAL PROTEIN 4.9 g/dL (6.4-8.2)
[2020-10-04 10:09] VITALS: BP 109/58
[2020-10-04 11:23] VITALS: BP 111/58
--- NOTE | 2020-10-04 13:39 | NUR ---
Remains on 6L o2. Therapies to see. ARU consult pending, WEBSPHERE CONSULTANT to eval today. Anticipate dc in 1-2 days.
[2020-10-04 15:27] VITALS: BP 117/52
--- NOTE | 2020-10-04 18:22 | NUR ---
ASSUMED CARE OF PT AT 0730. PT A&O X4 WITH THIS ASSESSMENT. PT POST SURGERY FROM A VENTRAL HERNIA REPAIR. RETENTION SUTURES ARE DRY AND INTACT, WITHOUT ANY REDDNESS AND/OR DRAINAGE. CLEAR YELLOW DRAINAGE IN SHERLYN DRAINS. PT ON 10L ON INITIAL ASSESSMENT AND TITRATED TO 7L. PT C/O L SHOULDER PAIN AT AN 8 AND OXY ADMINISTERED. REASSESSMENT PAIN DECREASED TO A 6. COMFORT MEASURES AND NON PHARMACOLOGICAL INTERVENTIONS IMPLEMENTED. PT DID SOME BEDSIDE EXCERCISE WITH OT AND REFUSED PT. THIS NURSE EDUCATED PT OM THE IMPORTANCE OF PARTICIPATING IN THERAPY AND PT AGREED TO WORK WITH PT TOMORROW. DR. VIDAL GAVE NEW VERBAL ORDERS TO DC ENEMA, SUPPOSITORY, AND MAKE COLACE PRN. PT INFORMED OF NEW ORDERS. FALL PRECAUTIONS IN PLACE, CALL LIGHT IN REACH. MOISTURE BARRIER APPLIED AFTER EACH EPISODE OF INCONTINENCE. CONTINUE PATIENTS CURRENT PLAN OF CARE.
[2020-10-04 19:39] VITALS: BP 115/67
[2020-10-04 23:52] VITALS: BP 94/53
[2020-10-05 04:03] LABS: ABSOLUTE EOSINOPHILS 0.1 thou/uL (0.0-0.7); ABSOLUTE LYMPHOCYTES 0.9 thou/uL (0.8-5.3); ABSOLUTE MONOCYTES 0.4 thou/uL (0.0-1.2); ABSOLUTE NEUTROPHILS 7.2 thou/uL (1.6-8.1); BASOPHILS 0.5 %; EOSINOPHILS 1.1 %; HEMATOCRIT 35.2 % (42.0-52.0); HEMOGLOBIN 11.9 gm/dL (14.0-18.0); LYMPHOCYTES 10.9 %; MCH 30.4 pg (26.0-34.0); MCHC 33.7 g/dL (28.0-37.0); MCV 90.1 fL (80.0-100.0); MONOCYTES 4.8 %; MPV 10.7 fl. (7.2-11.1); NUCLEATED RBCS 0 /100WBC; PLATELET COUNT* 69 thou/uL (150-400); POLYS 82.7 %; RBC 3.91 mil/uL (4.50-6.00); RDW-CV 15.1 % (10.5-14.5); WBC 8.7 thou/uL (4.0-11.0)
[2020-10-05 04:15] VITALS: BP 98/51
[2020-10-05 04:33] LABS: CALCIUM 8.1 mg/dL (8.5-10.1); CREATININE 0.9 mg/dL (0.6-1.3); POTASSIUM 3.8 mmol/L (3.5-5.1)
--- NOTE | 2020-10-05 04:39 | NUR ---
ASSUMED CARE AT 1915H, ON HIGH FLOW NC AT 7-8 LPM AND TOLERATED. SEEN ON BED AO X4 BUT FORGETFUL AT TIMES. NO FEVER AND NO DISTRESS NOTED. BIPAP AT NIGHT TIME AND TOLERATED. PAIN MEDS GIVEN FOR SHOULDER PAIN. CONTINUE MONITORING AND TOWARDS GOALS.
[2020-10-05 07:50] VITALS: BP 102/57
[2020-10-05 08:00] VITALS: BP 102/57
--- NOTE | 2020-10-05 11:08 | NUR ---
ARU consulted yesterday, unsure if Pt will have support post ARU. CM spoke with Pt, stated that he has limited support, Pt requested that CM contact his roommate to see if she could offer support, CM left message for Liliana Espitialey [phone], awaiting call back. If roommate is unable to provide support, Pt will need SNF. Anticipate dc in a few days. Pulm following. Pt on 6L of o2, plan to wean to below 5L prior to dc. Pt refusing therapies, Pt will need to start participating, Dr leo redmond.
[2020-10-05 12:17] VITALS: BP 104/60
[2020-10-05 16:56] VITALS: BP 97/51
--- NOTE | 2020-10-05 18:18 | NUR ---
ASSUMED CARE OF PT AT 0730. A&O WITH PERIODS OF CONFUSION. PT CONTINUES TO BE WEAK AND UP IN BED MOST OF THIS SHIFT. PT WORKED WITH PT TODAY WITH A LITTLE PROGRESS. O2 SATS IN MED 80'S AFTER WORKING WITH PT. MONITORED O2 SATS AND OXYGEN TITRATED TO 10L PER HFNC, CURRENTLY O2 IS AT 8L HFNC AND O2 SATS MAINTAINING IN LOW 90'S. RETENTION SUTURES REMAIN DRY AND INTACT, 1 SHERLYN DRAIN WAS REMOVED BY SURGERY. REMAINS AFEBRILE WITH NO SIGN AND OR SYMPTOMS OF INFECTION. MEDICATIONS ADMINISTERED ORDERED. SAFETY MEASURES IN PLACE. WILL CONTINUE CURRENT PLAN OF CARE.
[2020-10-05 20:00] VITALS: BP 108/45
[2020-10-06] VITALS (8 sets, daily range): BP systolic 93–137; BP diastolic 43–64
[2020-10-06 06:28] LABS: ABSOLUTE EOSINOPHILS 0.1 thou/uL (0.0-0.7); ABSOLUTE LYMPHOCYTES 0.9 thou/uL (0.8-5.3); ABSOLUTE MONOCYTES 0.3 thou/uL (0.0-1.2); ABSOLUTE NEUTROPHILS 5.1 thou/uL (1.6-8.1); BASOPHILS 0.3 %; EOSINOPHILS 1.9 %; HEMATOCRIT 36.1 % (42.0-52.0); HEMOGLOBIN 12.2 gm/dL (14.0-18.0); LYMPHOCYTES 14.3 %; MCH 30.9 pg (26.0-34.0); MCHC 33.9 g/dL (28.0-37.0); MCV 91.1 fL (80.0-100.0); MPV 10.5 fl. (7.2-11.1); NUCLEATED RBCS 0 /100WBC; PLATELET COUNT* 62 thou/uL (150-400); POLYS 79.5 %; RBC 3.96 mil/uL (4.50-6.00); RDW-CV 15.1 % (10.5-14.5); WBC 6.4 thou/uL (4.0-11.0)
[2020-10-06 07:03] LABS: ALBUMIN 2.2 g/dL (3.4-5.0); CREATININE 0.9 mg/dL (0.6-1.3); POTASSIUM 3.8 mmol/L (3.5-5.1); TOTAL BILIRUBIN 2.7 mg/dL (<0.1-1.0); TOTAL PROTEIN 5.2 g/dL (6.4-8.2)
--- NOTE | 2020-10-06 07:47 | NUR ---
ASSUMED PT'S CARE @ ABOUT 1900. ALERT AND ORIENTED. VSS ON RA. MEDS GIVEN PER EMAR. PT SLEPT OFF AND ON THIS SHIFT. BM NOTED THIS SHIFT. INCONTINENT OF B/B. SOMETIMES WOULD UTILIZE URINAL FOR VOIDING. Q2 TURN. FALL PRECAUTION IN PLACE. CALL LIGHT WITHIN REACH. HOURLY ROUNDINGS MADE. WILL CONTINUE TO MONITOR.
[2020-10-06 08:59] LABS: BE 7.7 mmol/L (-2 to +3); PCO2 38.8 mmHg (35.0-45.0); pH 7.521 (7.340-7.450)
[2020-10-06 09:00] LABS: PO2 48.4 mmHg (75.0-100.0)
--- NOTE | 2020-10-06 12:37 | NUR ---
CM continues to await call back from Pt's roommate. CM discussed probable need for SNF with Pt, Pt in agreement. CM to fax SNF referral to [facility] per Pt's request. Pt's o2 needs up, on 13L. Pt may need to be placed back on bipap. Following.
--- NOTE | 2020-10-06 20:15 | NUR ---
ASSUMED CARE OF PT AT 0730. ASSESSMENT COMPLETED, PT WITH INCREASED RESP DISTRESS. RT AND PHYSICIAN NOTIFIED. O2 INCREASED TO 50 L HEATED HIGH FLOW AT 95%. URGENT CTA COMPLETED-REFER TO RESULTS. ONE TIME DOSE OF 125MG SOLUMEDROLE GIVEN- ABLE TO TITRATE PT TO 40L HEATED HIGH FLOW AT 50% SAT MID 90'S. PT ASYMPTOMATIC. AM METOPROLOL AND LASIX HELD DUE TO HYPOTENSION-BP 90'S/40'S. PT A&0X4, RESPONDS READILY. JAUNDICE SKIN NOTICED. PROPHYLACTIC DRESSING C/D/I TO BUTTOCKS. RETENTION SUTURES C/D/I. ABDOMINAL BINDER IN PLACE. SHERLYN DRAIN TO LEFT-CLEAR YELLOW DRAINAGE-50CC OUT THIS SHIFT. SAFETY MEASURES IN PLACE. REPOSITIONED EVERY 2 HOURS TO PROMOTE COMFORT. HOURLY ROUNDING OBSERVED. WILL CONTINUE PLAN OF CARE.
[2020-10-07] VITALS: BP 101/54
[2020-10-07 04:00] VITALS: BP 112/55
--- NOTE | 2020-10-07 04:50 | NUR ---
ASSUMED PT CARE AT APPROX 1930. PT IS AWAKE AND ORIENTED X4, FORGETFUL. PT IS TRACING SR w/ BBB ON THE MAMMA LOGIST. PT C/O PAIN ON THE INCISION SITE-RELIEVED BY PAIN MEDS GIVEN PER NOV. spO2 IS 90-95 ON 40L OF O2, 60% PER THE HEATED HIGH FLOW NASAL CANNULA. spO2 89-92 ON BIPAP. RT AWARE. PT REFUSED SOME TURNS, EDUCATION ON THE IMPORTANCE OF REPOSITIONING PROVIDED. PT STATED HE'S "COMFORTABLE AND WILL TURN LATER" PT IS CLOSELY MONITORED.
[2020-10-07 08:00] VITALS: BP 103/51
[2020-10-07 12:00] VITALS: BP 121/55
--- NOTE | 2020-10-07 12:05 | NUR ---
No weekend dc planned. Pt on 40LHF or bipap. [facility] can accept Pt once medically stable.
[2020-10-07 14:00] VITALS: BP 111/61
--- NOTE | 2020-10-07 15:13 | NUR ---
WOUND NURSE: RECEIVED REQUEST TO SEE PATIENT TO ADDRESS SKIN LESION ON COCCYX. PRESENTS A HEALING STAGE 2 PRESSURE INJURY MEASURING 0.5 X 0.3 X 0.1 CM AND CONTAINING MOIST PINK NONGRANULATIOBN TISSUE IN THE WOUND BED. CLEANSED WITH SOAP AND WATER, RINSED, THEN PATTED DRY. APPLIED MARATHON LIQUID SKIN PROTECTANT AND LET DRY. PATIENT IS NOT TEACHEABLE AND NEEDS ASSISTANCE WITH REPOSITIONING.
--- NOTE | 2020-10-07 15:25 | NUR ---
RECEIVED REQUEST TO SEE PATIENT TO ADDRESS SKIN LESION ON SACRUM. PRESENTS HEALING STAGE 2 PRESSURE INJURY ON SACRUM MEASURING 2.5 X 2.5 X 0.1 CM. CLEANSED WITH SOAP AND WATER, RINSED WITH WATE, THEN PATTED DRY. APPLIED SKIN PREP TO PERIWOUND THEN APPLIED EXUDERM TO WOUND AND SECURED IN PLACE USING SURESITE TRANSPARENT DRESSING. THIS WAS TOLERATED WELL BY THE PATIENT. INSTRUCTED PATIENT ON THE IMPORTANCE OF Q 2 HOUR REPOSITIONING OFF WOUND. HE STATES HE UNDERSTANDS.
--- NOTE | 2020-10-07 17:39 | 2DMMODE ---
[place] [address] 2 D/M-MODE ECHOCARDIOGRAM Name: SHANTHIАЛЕКСАНДР J Room: [address] ADM IN [place].Og.#: [id number] Admission: 09/12/20 Attend Phys: Rashaad Boudreaux Discharge: Date of : 46 Date of Service: 10/07/20 1738 Report #: [id number] THIS REPORT FOR: cc: FAM - No family physician/PCP FAM - No family physician/PCP Rob Goldman MD [facility] ~ APPROVED REPORT Study performed: 10/07/2020 15:24:05 EXAM: Two demensional only Patient Location: In-Patient Room #: [facility] Status: routine BSA: 2.04 HR: 84 bpm BP: 121/55 mmHg Rhythm: NSR Other Information Technically limited study due to apical views only. Indications Dyspnea Echo Enhancing Agent Indication: Rule out Shunt Agent(s) / Amount(s) Used: Agitated Saline 10 cc Volumes Left Atrial Volume (Systole) LA ESV Index: 20.60 mL/m2 Aortic Valve AoV Peak Adrien.: 1.31 m/s AO Peak Gr.: 6.84 mmHg LVOT Max P.24 mmHg AO Mean Gr.: 4.29 mmHg LVOT Mean P.95 mmHg LVOT Max V: 1.25 m/s AO V2 VTI: 19.50 cm LVOT Mean V: 0.78 m/s LVOT V1 VTI: 18.74 cm Mitral Valve E/A Ratio: 0.75 MV Decel. Time: 296.29 [place] [address] 2 D/M-MODE ECHOCARDIOGRAM Name: SHANTHIАЛЕКСАНДР Caitlin Room: [address] IN [facility]#: [id number] Admission: 09/12/20 Attend Phys: Rashaad Boudreaux Discharge: Date of : 46 Date of Service: 10/07/20 1738 Report #: [id number] E Max Adrien.: 0.46 m/s MV PHT: 85.92 ms MVA (PHT): 2.56 cm2 Left Ventricle The left ventricle is normal size. There is normal LV segmental wall motion. There is normal left ventricular wall thickness. Left ventricular systolic function is normal. The left ventricular ejection fraction is within the normal range. LVEF is 65-70%. Grade I - abnormal relaxation pattern. Right Ventricle The right ventricle is normal size. The right ventricular systolic function is normal. Atria The left atrium size is normal. The interatrial septum is intact with no evidence for an atrial septal defect. The right atrium size is normal. Aortic Valve The aortic valve is normal in structure. No aortic regurgitation is present. There is no aortic valvular stenosis. Mitral Valve The mitral valve is normal in structure. There is no mitral valve regurgitation noted. No evidence of mitral valve stenosis. Tricuspid Valve The tricuspid valve is normal in structure. Trace tricuspid regurgitation. Unable to assess PA pressure. Pulmonic Valve Pulmonic valve is not visualized. There is no pulmonic valvular regurgitation. Great Vessels The aortic root is normal in size. IVC is not well visualized. Pericardium There is no pericardial effusion. <Conclusion> Left ventricular systolic function is normal. The left ventricular ejection fraction [place] [address] 2 D/M-MODE ECHOCARDIOGRAM Name: АЛЕКСАНДР MAKI Room: [address] IN .R.#: [id number] Admission: 09/12/20 Attend Phys: Rashaad Boudreaux Discharge: Date of : 46 Date of Service: 10/07/201737 Report #: [id number]. The interatrial septum is intact with no evidence for an atrial septal defect. <ELECTRONICALLY SIGNED> By: Rob Goldman MD, [facility] 10/07/208 37 37 Rob Goldman MD, FACC /INF
[2020-10-07 20:00] VITALS: BP 98/52
[2020-10-08 00:25] VITALS: BP 104/53
[2020-10-08 04:46] VITALS: BP 136/93
--- NOTE | 2020-10-08 07:12 | NUR ---
ASSUMED PT CARE AT APPROX 1930. PT IS AWAKE AND ORIENTED X4. PT IS NOT IN DISTRESS, spO2 90-94% ON THE HEATED HIGH FLOW NASAL CANNULA WITH 35L OF O2. PT IS TRACING SR w/BBB ON THE MANNEQUIN MAKER. PT C/O BACK PAIN RELIEVED BY PAIN MEDS GIVEN PER NOV. NO ACUTE CHANGES THIS SHIFT. CALL LIGHT WITHIN REACH. HO URLY ROUNDING DONE FOR PT SAFETY. HIGH FALL PRECAUTIONS IN PLACE.
[2020-10-08 08:00] VITALS: BP 110/54
[2020-10-08 12:03] VITALS: BP 105/61
[2020-10-08 16:43] VITALS: BP 116/57
[2020-10-08 23:31] VITALS: BP 118/61
[2020-10-09 04:15] VITALS: BP 105/58
[2020-10-09 05:01] LABS: HEMATOCRIT 34.5 % (42.0-52.0); HEMOGLOBIN 11.6 gm/dL (14.0-18.0); MCHC 33.6 g/dL (28.0-37.0); MCV 92.2 fL (80.0-100.0); MPV 11.2 fl. (7.2-11.1); RBC 3.74 mil/uL (4.50-6.00); WBC 6.3 thou/uL (4.0-11.0)
[2020-10-09 05:16] LABS: ALBUMIN 2.3 g/dL (3.4-5.0); CALCIUM 8.2 mg/dL (8.5-10.1); CREATININE 1.1 mg/dL (0.6-1.3); MAGNESIUM 2.2 mg/dL (1.8-2.4); PHOSPHORUS* 4.4 mg/dL (2.5-4.9); POTASSIUM 3.7 mmol/L (3.5-5.1); TOTAL BILIRUBIN 2.5 mg/dL (<0.1-1.0); TOTAL PROTEIN 5.1 g/dL (6.4-8.2)
--- NOTE | 2020-10-09 07:41 | NUR ---
ASSUMED PT'S CARE @ ABOUT 1900. ALERT AND ORIENTED. MEDS GIVEN PER EMAR. PT SLEPT WELL THIS SHIFT. NO BM NOTED THIS SHIFT. VOIDED VIA URIANL THIS SHIFT. HEATED HF O2 NEED. BIPAP @ HS. FALL PRECAUTION IN PLACE. CALL LIGHT WITHIN REACH. HOURLY ROUNDINGS MADE. WILL CONTINUE TO MONITOR.
[2020-10-09 11:36] VITALS: BP 106/62
[2020-10-09 16:32] VITALS: BP 100/58
--- NOTE | 2020-10-09 17:16 | NUR ---
PATIENT ALERT AND ORIENTED X 4. VITAL SIGNS STABLE ON 35L O2 HIGH FLOW CANULA AT 50%. TRIPLE LUMEN PICC PATENT AND SALINE LOCKED. SINUS TACH ON THE MONITOR. DENIES PAIN AND NAUSEA AT THIS TIME. TURNED AND REPOSITIONED EVERY TWO HOURS. DRESSINGS TO SACRUM AND BUTTOCKS DRY AND INTACT. FALL PRECAUTIONS IN PLACE AND BED ALARM ON. HOURLY ROUNDS MAINTAINED THROUGHOUT THE SHIFT. CALL LIGHT WITHIN REACH.
[2020-10-09 20:00] VITALS: BP 123/67
[2020-10-10 00:38] VITALS: BP 115/62
[2020-10-10 04:48] VITALS: BP 115/65
[2020-10-10 04:50] LABS: HEMOGLOBIN 11.4 gm/dL (14.0-18.0); MCHC 33.7 g/dL (28.0-37.0); MPV 10.8 fl. (7.2-11.1); NUCLEATED RBCS 0 /100WBC; PLATELET COUNT* 56 thou/uL (150-400); RBC 3.69 mil/uL (4.50-6.00); RDW-CV 15.7 % (10.5-14.5); WBC 7.9 thou/uL (4.0-11.0)
[2020-10-10 05:06] LABS: ALBUMIN 2.2 g/dL (3.4-5.0); CALCIUM 8.3 mg/dL (8.5-10.1); CREATININE 1.2 mg/dL (0.6-1.3); POTASSIUM 3.6 mmol/L (3.5-5.1); TOTAL BILIRUBIN 2.5 mg/dL (<0.1-1.0); TOTAL PROTEIN 5.1 g/dL (6.4-8.2)
[2020-10-10 05:26] LABS: ABSOLUTE LYMPHOCYTES 0.2 thou/uL (0.8-5.3); ABSOLUTE MONOCYTES 0.3 thou/uL (0.0-1.2); ABSOLUTE NEUTROPHILS 7.3 thou/uL (1.6-8.1); PLATELET ESTIMATE DECREASED; TOXIC GRANULATION 2+
--- NOTE | 2020-10-10 06:34 | NUR ---
ASSUMED PT'S CARE @ ABOUT 1900. ALERT AND ORIENTED. VSS ON 40L HEATED HF O2. BIPAP AT HS. PT SLEPT OFF AND ON THIS SHIFT. PT TOOK MEDS PER EMAR. REMAINS BEDREST. Q2 TURN. WOUND TO SACRUM CHANGED THIS SHIFT. THIS AM, PT ENCOURAGED TO BE OOB BY DOC THIS AM. FALL PRECAUTION IN PLACE. CALL LIGHT WITHIN REACH. HOURLY ROUNDINGS MADE. WILL CONTINUE TO MONITOR.
[2020-10-10 08:01] VITALS: BP 106/65
--- NOTE | 2020-10-10 08:58 | NUR ---
ASSUMED CARE OF PT THIS AM AROUND 0715- CARTON FOLDER IN PLACE ORDERED, TRACING SR WITH PAC- UPON ASSESSMENT PT NOTED TO NINI RESTING IN BED- PT A&O X4- INCONT OF BOWEL, USING URINAL- Q [address] INDICATED-COURSE LUNG SOUNDS WITH NOTED WHEEZES, OCCASSIONAL NON-PRODUCTIVE COUGH- O2 SAT 94% ON HEATED HF THIS AM- HOSPICE CONSULT NOTED THIS AM- ABD SOFT/ROUND/TENDER, BS X4 QUADS- MIDLINE ABD INCISSION NOTED TO WELL APPROXIMATED, COVERED WITH ABD THIS ABD BINDER- SET UP ASSIST REQUIRED WITH MEALS, GOOD PO INTAKE NOTED- BS MONITORED WITH INSULIN PRESCRIBED- RUE PICC NOTED C/D/I; SL- +1 BLE EDEMA NOTED, OFF LOADED ON PILLOW- DRESSING TO BOTTOM REPORTED TO HAVE BEEN CHANGED 10/09/20- CALL LIGHT AND PERSONAL BELONGINGS WITH IN REACH- ALL NEEDS MET AT THIS TIME- WCTM
[2020-10-10 12:47] VITALS: BP 102/87
--- NOTE | 2020-10-10 15:08 | NUR ---
Consult received to arrange hospice v. hospice house. CM spoke with Pt, discussed the three hospice options, home with house v. ltc with hospice v. hospice house. Pt wants to go to a LTC facility, does not want to burden his roommate with assisting with his cares and would not want to go to a hospice house and have to find a place to live if he did not decline in the time frame aloted. Cm asked Med Assist to screen for [facility] to cover LTC cost. CM faxed a referral to [facility].
[2020-10-10 18:19] VITALS: BP 127/66
[2020-10-10 21:04] VITALS: BP 104/47
[2020-10-11 00:58] VITALS: BP 91/58
[2020-10-11 04:37] VITALS: BP 112/68
--- NOTE | 2020-10-11 04:38 | NUR ---
PT A&O, VSS ON 3L NC, BIPAP AT 40% WHILE SLEEPING, PICC SALINE LOCKED, PT REPOSITIONED Q2H, NO C/O PAIN THIS SHIFT, PT SR-ST WITH BBB, PAC's, PVC's ON MONITOR, PT SLEEPING INTERMITTANTLY THOUGHOUT NIGHT. WILL CONTINUE TO MONITOR.
[2020-10-11 08:00] VITALS: BP 108/62
[2020-10-11] MEDS ORDERED: PULMICORT0.5 MG/2 M INH (08:09)
[2020-10-11] MEDS ORDERED: HUMALOG100 UNIT/1 SUBQ (08:09)
[2020-10-11] MEDS ORDERED: ALDACTONE100 MG PO (08:09)
[2020-10-11] MEDS ORDERED: FLOMAX0.4 MG PO (08:09)
[2020-10-11] MEDS ORDERED: OXYCODONE HCL 55 MG PO (08:09)
[2020-10-11] MEDS ORDERED: LACTULOSE20 GM/30 M PO (08:09)
[2020-10-11] MEDS ORDERED: PREDNISONE 10 M10 MG PO (08:09)
[2020-10-11] MEDS ORDERED: LASIX 40 MG TAB40 M1 PO (08:09)
[2020-10-11] MEDS ORDERED: ELIQUIS5 MG PO (08:09)
[2020-10-11] MEDS ORDERED: LANTUS SUBQ (08:09)
[2020-10-11] MEDS ORDERED: NEXIUM40 MG PO (08:09)
[2020-10-11] MEDS ORDERED: DILTIAZEM 24HR180 M1 PO (08:09)
[2020-10-11] MEDS ORDERED: IPRAT-ALBUT 0.5-3 ML INH (08:10)
--- NOTE | 2020-10-11 10:08 | NUR ---
Pt medically stable to dc, continue to wait Med Assist to screen Pt for [facility], Pt must be [facility] pending prior to a LTC accepting. Faxed a referral to [facility]. Await decision to accept from all LTCs.
[2020-10-11 11:30] VITALS: BP 113/71
[2020-10-11 16:52] VITALS: BP 126/81
--- NOTE | 2020-10-11 18:45 | NUR ---
RECEIVED REPORT. ASSUMED CARE OF PT AROUND 0730. AM ASSESSMENT AND VITALS COMPLETED CHARTED. MEDS PER EMAR. PATRICA AND TENSION SUTURES REMOVED. PT WITH FAIR APPETITE, TOLERATING DIET. OUTPUT CHARTED. PLAN IS FOR PT TO DC TO [facility] IN AM. FALL PRECAUTIONS IN PLACE. CALL LIGHT WITH REACH. HOURLY ROUNDING PERFORMED.
[2020-10-11 20:00] VITALS: BP 118/63
[2020-10-12] VITALS: BP 120/59
[2020-10-12 04:00] VITALS: BP 126/60
[2020-10-12 04:43] LABS: ABSOLUTE LYMPHOCYTES 0.5 thou/uL (0.8-5.3); ABSOLUTE MONOCYTES 0.3 thou/uL (0.0-1.2); BASOPHILS 0.1 %; EOSINOPHILS 0.1 %; HEMATOCRIT 31.8 % (42.0-52.0); HEMOGLOBIN 10.6 gm/dL (14.0-18.0); LYMPHOCYTES 6.8 %; MCH 30.7 pg (26.0-34.0); MCHC 33.5 g/dL (28.0-37.0); MCV 91.6 fL (80.0-100.0); MPV 11.3 fl. (7.2-11.1); NUCLEATED RBCS 0 /100WBC; PLATELET COUNT* 59 thou/uL (150-400); RBC 3.47 mil/uL (4.50-6.00); RDW-CV 16.7 % (10.5-14.5); WBC 6.7 thou/uL (4.0-11.0)
[2020-10-12 05:04] LABS: CREATININE 0.9 mg/dL (0.6-1.3); MAGNESIUM 2.4 mg/dL (1.8-2.4); POTASSIUM 3.2 mmol/L (3.5-5.1)
[2020-10-12 08:30] VITALS: BP 130/69
[2020-10-12 09:13] VITALS: BP 130/69
[2020-10-12] MEDS ORDERED: AUGMENTIN 875-1 EACH PO (11:30)
[2020-10-12] MEDS ORDERED: VENTOLIN HFA 1818 GM INH (11:30)
--- NOTE | 2020-10-12 13:10 | NUR ---
Pt has opted not to do hospice at this time, plan to dc to [facility] and do SNF, plan to reassess post SNF stay. CM faxed [facility] application confirmation to [facility], along with therapy evals and newly completed DPOA, appointing his son, Roberto Carlos Valerio, copy placed on Pt's chart. Faxed dc orders. Chart copied. Nurse report number is [phone]. Rapid covid administered, awaiting results, CM to fax once received. CM left messages for both of Pt's son's Roberto Carlos and Marko, regarding dispo. Ambulance to [facility] and transport at 3pm.
--- NOTE | 2020-10-12 15:59 | NUR ---
PT DISCHARGED TO [facility] CALLED REPORT TO LEONIE FREEDMAN CONCERNS AT THIS TIME FULL CODE AT [place] AND NO HOSPICE
== END 2020-10-12 15:20 | DRG 329 ==
LOC: M.ERS 17:46 → M.ICU 18:51 → M.TBA-ER 18:51 → M.ICU 09-13 04:17 → M.2W 09-21 13:55 → M.ICU 09-22 16:20 → M.2W 09-29 15:33
PROVIDERS: Family Medicine; Internal Medicine; Internal Medicine Critical Care Medicine; Internal Medicine Gastroenterology; Pediatrics; Personal Emergency Response Attendant; Surgery; ADMIT Internal Medicine; ATTEND Internal Medicine
PROC: 5A09357 Assistance with Respiratory Ventilation, Less than 24 Consecutive Hours, Continuous Positive Airway Pressure (ICD-10-PCS; 2020-09-12)
PROC: 0DBU0ZZ Excision of Omentum, Open Approach (ICD-10-PCS; 2020-09-13)
PROC: 0DT80ZZ Resection of Small Intestine, Open Approach (ICD-10-PCS; 2020-09-13)
PROC: 5A0935A Assistance with Respiratory Ventilation, Less than 24 Consecutive Hours, High Flow/Velocity Cannula (ICD-10-PCS; 2020-09-14)
PROC: 5A0935A Assistance with Respiratory Ventilation, Less than 24 Consecutive Hours, High Flow/Velocity Cannula (ICD-10-PCS; 2020-09-15)
PROC: 5A09357 Assistance with Respiratory Ventilation, Less than 24 Consecutive Hours, Continuous Positive Airway Pressure (ICD-10-PCS; 2020-09-15)
PROC: 0D9670Z Drainage of Stomach with Drainage Device, Via Natural or Artificial Opening (ICD-10-PCS; 2020-09-19)
PROC: 0DQW0ZZ Repair Peritoneum, Open Approach (ICD-10-PCS; 2020-09-19)
PROC: 0JU80JZ Supplement of Abdomen Subcutaneous Tissue and Fascia with Synthetic Substitute, Open Approach (ICD-10-PCS; 2020-09-19)
PROC: B548ZZA Ultrasonography of Superior Vena Cava, Guidance (ICD-10-PCS; 2020-09-23)
PROC: 02HV33Z Insertion of Infusion Device into Superior Vena Cava, Percutaneous Approach (ICD-10-PCS; 2020-09-23)
PROC: 5A0955A Assistance with Respiratory Ventilation, Greater than 96 Consecutive Hours, High Flow/Velocity Cannula (ICD-10-PCS; 2020-09-27)
PROC: 5A09357 Assistance with Respiratory Ventilation, Less than 24 Consecutive Hours, Continuous Positive Airway Pressure (ICD-10-PCS; 2020-09-30)
PROC: 5A0935A Assistance with Respiratory Ventilation, Less than 24 Consecutive Hours, High Flow/Velocity Cannula (ICD-10-PCS; 2020-09-30)
PROC: 5A09357 Assistance with Respiratory Ventilation, Less than 24 Consecutive Hours, Continuous Positive Airway Pressure (ICD-10-PCS; 2020-10-01)
PROC: 5A0935A Assistance with Respiratory Ventilation, Less than 24 Consecutive Hours, High Flow/Velocity Cannula (ICD-10-PCS; 2020-10-01)
PROC: 5A09357 Assistance with Respiratory Ventilation, Less than 24 Consecutive Hours, Continuous Positive Airway Pressure (ICD-10-PCS; principal; 2020-10-02)
PROC: 0BH17EZ Insertion of Endotracheal Airway into Trachea, Via Natural or Artificial Opening (ICD-10-PCS; principal; 2020-10-02)
PROC: 5A0935A Assistance with Respiratory Ventilation, Less than 24 Consecutive Hours, High Flow/Velocity Cannula (ICD-10-PCS; principal; 2020-10-02)
PROC: 5A1955Z Respiratory Ventilation, Greater than 96 Consecutive Hours (ICD-10-PCS; principal; 2020-10-02)
PROC: 5A09357 Assistance with Respiratory Ventilation, Less than 24 Consecutive Hours, Continuous Positive Airway Pressure (ICD-10-PCS; 2020-10-03)
PROC: 5A0935A Assistance with Respiratory Ventilation, Less than 24 Consecutive Hours, High Flow/Velocity Cannula (ICD-10-PCS; 2020-10-03)
PROC: 5A09357 Assistance with Respiratory Ventilation, Less than 24 Consecutive Hours, Continuous Positive Airway Pressure (ICD-10-PCS; 2020-10-04)
PROC: 5A0935A Assistance with Respiratory Ventilation, Less than 24 Consecutive Hours, High Flow/Velocity Cannula (ICD-10-PCS; 2020-10-04)
PROC: 5A09357 Assistance with Respiratory Ventilation, Less than 24 Consecutive Hours, Continuous Positive Airway Pressure (ICD-10-PCS; 2020-10-05)
PROC: 5A0935A Assistance with Respiratory Ventilation, Less than 24 Consecutive Hours, High Flow/Velocity Cannula (ICD-10-PCS; 2020-10-05)
PROC: 5A0935A Assistance with Respiratory Ventilation, Less than 24 Consecutive Hours, High Flow/Velocity Cannula (ICD-10-PCS; 2020-10-06)
PROC: 5A09357 Assistance with Respiratory Ventilation, Less than 24 Consecutive Hours, Continuous Positive Airway Pressure (ICD-10-PCS; 2020-10-06)
PROC: 5A0935A Assistance with Respiratory Ventilation, Less than 24 Consecutive Hours, High Flow/Velocity Cannula (ICD-10-PCS; 2020-10-07)
PROC: 5A09357 Assistance with Respiratory Ventilation, Less than 24 Consecutive Hours, Continuous Positive Airway Pressure (ICD-10-PCS; 2020-10-07)
PROC: 5A0935A Assistance with Respiratory Ventilation, Less than 24 Consecutive Hours, High Flow/Velocity Cannula (ICD-10-PCS; 2020-10-08)
PROC: 5A09357 Assistance with Respiratory Ventilation, Less than 24 Consecutive Hours, Continuous Positive Airway Pressure (ICD-10-PCS; 2020-10-08)
PROC: 5A0935A Assistance with Respiratory Ventilation, Less than 24 Consecutive Hours, High Flow/Velocity Cannula (ICD-10-PCS; 2020-10-09)
PROC: 5A09357 Assistance with Respiratory Ventilation, Less than 24 Consecutive Hours, Continuous Positive Airway Pressure (ICD-10-PCS; 2020-10-09)
PROC: 5A0935A Assistance with Respiratory Ventilation, Less than 24 Consecutive Hours, High Flow/Velocity Cannula (ICD-10-PCS; 2020-10-10)
PROC: 5A09357 Assistance with Respiratory Ventilation, Less than 24 Consecutive Hours, Continuous Positive Airway Pressure (ICD-10-PCS; 2020-10-10)
PROC: 5A0935A Assistance with Respiratory Ventilation, Less than 24 Consecutive Hours, High Flow/Velocity Cannula (ICD-10-PCS; 2020-10-11)
PROC: 5A09357 Assistance with Respiratory Ventilation, Less than 24 Consecutive Hours, Continuous Positive Airway Pressure (ICD-10-PCS; 2020-10-11)
PROC: 5A0935A Assistance with Respiratory Ventilation, Less than 24 Consecutive Hours, High Flow/Velocity Cannula (ICD-10-PCS; 2020-10-12)
PROC: 5A09357 Assistance with Respiratory Ventilation, Less than 24 Consecutive Hours, Continuous Positive Airway Pressure (ICD-10-PCS; 2020-10-12)
DX: K43.6 Other and unspecified ventral hernia with obstruction, without gangrene (principal); J96.21 Acute and chronic respiratory failure with hypoxia; E43 Unspecified severe protein-calorie malnutrition; J69.0 Pneumonitis due to inhalation of food and vomit; J96.22 Acute and chronic respiratory failure with hypercapnia; E87.1 Hypo-osmolality and hyponatremia; J44.1 Chronic obstructive pulmonary disease with (acute) exacerbation; J44.0 Chronic obstructive pulmonary disease with (acute) lower respiratory infection; K76.6 Portal hypertension; K56.7 Ileus, unspecified; E87.6 Hypokalemia; F17.210 Nicotine dependence, cigarettes, uncomplicated; I10 Essential (primary) hypertension; E11.65 Type 2 diabetes mellitus with hyperglycemia; K70.31 Alcoholic cirrhosis of liver with ascites; E66.01 Morbid (severe) obesity due to excess calories; E87.8 Other disorders of electrolyte and fluid balance, not elsewhere classified; I48.0 Paroxysmal atrial fibrillation; D69.6 Thrombocytopenia, unspecified; K76.81 Hepatopulmonary syndrome; Z66 Do not resuscitate; Z20.822 Contact with and (suspected) exposure to COVID-19; Z51.5 Encounter for palliative care; Z68.36 Body mass index [BMI] 36.0-36.9, adult

== ENCOUNTER 2020-10-25 14:46 | Emergency (ER) | payer MEDICARE ==
[~2020-10-25] VITALS: Ht 180.3 cm; Wt 106.1 kg
[~2020-10-25 14:46] MED LIST: ALDACTONE100 MG PO; AUGMENTIN 875-1 EACH PO; DILTIAZEM 24HR180 M1 PO; ELIQUIS5 MG PO; FLOMAX0.4 MG PO; HUMALOG100 UNIT/1 SUBQ; IPRAT-ALBUT 0.5-3 ML INH; LACTULOSE20 GM/30 M PO; LANTUS SUBQ; LASIX 40 MG TAB40 M1 PO; NEXIUM40 MG PO; OXYCODONE HCL 55 MG PO; PREDNISONE 10 M10 MG PO; PULMICORT0.5 MG/2 M INH; VENTOLIN HFA 1818 GM INH
[2020-10-25 15:34] LABS: ABSOLUTE MONOCYTES 0.4 thou/uL (0.0-1.2); ABSOLUTE NEUTROPHILS 5.4 thou/uL (1.6-8.1); BASOPHILS 0.3 %; HEMATOCRIT 33.8 % (42.0-52.0); HEMOGLOBIN 11.4 gm/dL (14.0-18.0); LYMPHOCYTES 14.7 %; MCH 31.1 pg (26.0-34.0); MCHC 33.6 g/dL (28.0-37.0); MCV 92.4 fL (80.0-100.0); MPV 8.9 fl. (7.2-11.1); NUCLEATED RBCS 0 /100WBC; PLATELET COUNT* 91 thou/uL (150-400); RBC 3.65 mil/uL (4.50-6.00); RDW-CV 18.7 % (10.5-14.5); WBC 6.8 thou/uL (4.0-11.0)
[2020-10-25 15:41] LABS: CALCIUM 8.8 mg/dL (8.5-10.1); CREATININE 0.9 mg/dL (0.6-1.3); POTASSIUM 4.4 mmol/L (3.5-5.1)
[2020-10-25 15:55] LABS: ALBUMIN 1.9 g/dL (3.4-5.0); TOTAL BILIRUBIN 1.4 mg/dL (<0.1-1.0); TOTAL PROTEIN 6.2 g/dL (6.4-8.2)
[2020-10-25] MEDS ORDERED: LASIX 40 MG TAB40 MG PO (17:32)
[2020-10-25 18:24] VITALS: BP 106/61
--- NOTE | 2020-10-26 14:14 | EKG ---
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 <ELECTRONICALLY SIGNED> By: Rick Galloway MD, [facility] 10/26/20 1414 1530 1530 Rick Galloway MD, [facility] /EPI
== END 2020-10-25 18:25 ==
LOC: M.ERS 14:46
PROVIDERS: Emergency Medicine
DX: J44.9 Chronic obstructive pulmonary disease, unspecified (principal); J98.9 Respiratory disorder, unspecified; I50.9 Heart failure, unspecified; R77.8 Other specified abnormalities of plasma proteins; Z20.822 Contact with and (suspected) exposure to COVID-19; E11.9 Type 2 diabetes mellitus without complications; I11.0 Hypertensive heart disease with heart failure; G47.30 Sleep apnea, unspecified; I48.91 Unspecified atrial fibrillation; K21.9 Gastro-esophageal reflux disease without esophagitis; K74.60 Unspecified cirrhosis of liver; F17.210 Nicotine dependence, cigarettes, uncomplicated; Z79.4 Long term (current) use of insulin